=== PATIENT | male | born 1955 | race Caucasian/White ===

== ENCOUNTER 2017-10-21 13:16 | Emergency (ER) | payer MEDICAID ==
[~2017-10-21] VITALS: Ht 180.3 cm; Wt 135.3 kg
[~2017-10-21 13:16] MED LIST: ASPI-496 PO; ATOR40TA78 PO; CITA20TA5 PO; FISH OIL PO; LISI-170 PO; METF10002 PO; MULT-6 PO
[2017-10-21 13:18] VITALS: BP 142/77
[2017-10-21] MEDS ORDERED: HYDROcodone/APAP 5/325 TABLET ONE (13:43)
[2017-10-21] MEDS ORDERED: HYDROcodone/APAP 5/325 TABLET PO ONE (14:00)
[2017-10-21] MEDS ORDERED: GLIM2TAB2 PO (14:05)
[2017-10-21] MEDS ORDERED: HYDR12.53 PO (14:08)
[2017-10-21] MEDS ORDERED: TAMS-11 PO (14:08)
[2017-10-21] MEDS ORDERED: AMIT25TA PO (14:08)
== END 2017-10-21 14:52 | disposition home or self-care (01) ==
LOC: ED 14:00
DX: M16.12 Unilateral primary osteoarthritis, left hip (principal); E11.9 Type 2 diabetes mellitus without complications; I10 Essential (primary) hypertension; Z87.891 Personal history of nicotine dependence
CPT/HCPCS: 99284

== ENCOUNTER 2018-11-28 13:48 | Inpatient (IN) | payer MEDICAID, MEDICARE ==
[~2018-11-28] VITALS: Ht 177.8 cm; Wt 115.7 kg
[~2018-11-28 13:48] MED LIST changes: +AMIT25TA PO; -CITA20TA5 PO; +CITA20TA6 PO; +GLIM2TAB2 PO; +HYDR12.517 PO; +TAMS-11 PO; +TRAM50TA2 PO
--- NOTE | 2018-11-28 14:08 | NUR ---
THIS IS A 62Y/O MALE THAT ARRIVES FROM HOME FOR LOWER RIGHT GROIN PAIN WITH LOWER RIGHT ABD PAIN. PT REPORTS PAIN FOR ONE MONTH BUT IT IS WORSE TODAY. PT DENIES ANY TRUAMA BUT HAS SIGNIFICANT REDNESS TO AREA NO SWELLING AND SCROTUM APPEARS TO HAVE SWELLING PRESENT AT THIS TIME. PT REPORTS THAT HE HAS BEEN USING LOTION ON AREA TO HELP ALLEVIATE THE PAIN. PT DENIES ANY INJECTION PENILE DISCHARGE OR PAINFUL URINATION. PT CONNECTED TO MONITORS AND CALL LIGHT IN REACH. AWAITING FURTHER ORDERS.
--- NOTE | 2018-11-28 15:01 | NUR ---
PT RESTING ON [facility]. PROVIDED WITH URINAL AND UA CUP.
[2018-11-28] MEDS ORDERED: NYSTATIN/TRIAMCINOLONE OINT 15GM TP ONE (15:25)
[2018-11-28] MEDS ORDERED: ONDANSETRON 2MG/ML, 2ML IVPush ONE (15:30)
[2018-11-28] MEDS ORDERED: HYDROmorphone 2 MG/ML, 1ML IVPush PRN (15:30)
[2018-11-28] MEDS ORDERED: SODIUM CHLORIDE FLUSH 10ML SYR IVF ONE (15:30)
[2018-11-28 15:52] LABS: BASOPHILS # (AUTO) 0.04 x10^3/uL (0-0.1); BASOPHILS % (AUTO) 0 % (0-1); EOSINOPHILS # (AUTO) 0.11 x10^3/uL (0-0.4); EOSINOPHILS % (AUTO) 1 % (1-7); LYMPHOCYTES # (AUTO) 2.42 x10^3/uL (1-3.4); LYMPHOCYTES % (AUTO) 28 % (22-44); MD NO; MEAN CORPUSCULAR HEMOGLOBIN 31.9 pg (27.5-34.5); MEAN CORPUSCULAR HGB CONC 34.5 g/dL (33.2-36.2); MEAN CORPUSCULAR VOLUME 92.2 fL (81-97); MEAN PLATELET VOLUME 9.4 fL (7.4-10.4); MONOCYTES # (AUTO) 0.61 x10^3/uL (0.2-0.8); MONOCYTES % (AUTO) 7 % (2-9); NEUTROPHILS % (AUTO) 63 % (42-75); PLATELET COUNT 186 x10^3/uL (130-400); RED BLOOD COUNT 5.21 x10^6/uL (4.38-5.82); RED CELL DISTRIBUTION WIDTH 13.4 % (9.4-14.8)
[2018-11-28] MEDS ORDERED: ONDANSETRON 2MG/ML, 2ML ONE (15:58)
[2018-11-28] MEDS ORDERED: HYDROmorphone 2 MG/ML, 1ML ONE (15:58)
[2018-11-28 16:05] LABS: ALANINE AMINOTRANSFERASE 35 U/L (12-78); ALBUMIN 3.4 g/dL (3.4-5.0); ANION GAP 5 mmol/L (5-15); CALCIUM 8.9 mg/dL (8.5-10.1); CHLORIDE 107 mmol/L (98-107); CREATININE 0.72 mg/dL (0.7-1.3)
[2018-11-28 16:07] LABS: ALKALINE PHOSPHATASE 90 U/L (45-117); BILIRUBIN,TOTAL 0.5 mg/dL (0.2-1.0); TOTAL PROTEIN 6.3 g/dL (6.4-8.2)
[2018-11-28] MEDS ORDERED: OMNIPAQUE 350 MG/ML, 100ML BOTTLE ONE (16:39)
--- NOTE | 2018-11-28 16:39 | NUR ---
PT STATES HE IS STILL UNABLE TO URINATE AT THIS TIME.
--- NOTE | 2018-11-28 18:04 | NUR ---
PT PROVIDED URINE SAMPLE. SENT TO LAB.
[2018-11-28] MEDS ORDERED: ACETAMINOPHEN 500 MG TABLET ONE (18:14)
[2018-11-28 18:20] LABS: MICROSCOPIC NOT IND
[2018-11-28 18:23] LABS: CULTURE INDICATED? NO
[2018-11-28] MEDS ORDERED: PROMETHAZINE 25 MG/ML, 1ML IM PRN (19:00)
[2018-11-28] MEDS ORDERED: morphine SULFATE 10 MG/ML, 1ML IVPush PRN (19:00)
[2018-11-28] MEDS ORDERED: LABETALOL 5MG/ML, 20ML IVPush PRN (19:00)
[2018-11-28] MEDS ORDERED: DOCUSATE 100 MG CAPSULE PO PRN (19:00)
[2018-11-28] MEDS ORDERED: ACETAMINOPHEN 325 MG TABLET PO PRN (19:00)
[2018-11-28] MEDS ORDERED: ONDANSETRON ODT 4 MG PO PRN (19:00)
[2018-11-28] MEDS ORDERED: POLYETHYLENE GLYCOL 17 GM PACKET PO PRN (19:00)
[2018-11-28] MEDS ORDERED: hydrALAzine 20 MG/ML, 1ML IVPush PRN (19:00)
[2018-11-28] MEDS ORDERED: BISACODYL 10 MG SUPP PR PRN (19:00)
[2018-11-28] MEDS ORDERED: HYDROcodone/APAP 5/325 TABLET PO PRN (19:00)
[2018-11-28] MEDS ORDERED: ONDANSETRON 2MG/ML, 2ML IVPush PRN (19:00)
--- NOTE | 2018-11-28 19:08 | NUR ---
Report to LYNNE Man.
--- NOTE | 2018-11-28 19:19 | NUR ---
HOME MED REC WAS DONE VSS UPDATED STABLE PT IS RESING NO C/O
[2018-11-28 19:34] LABS: FREE T4 (FREE THYROXINE) 1.14 ng/dL (0.76-1.46); THYROID STIMULATING HORMONE 0.695 mIU/L (0.358-3.740)
[2018-11-28] MEDS ORDERED: HEPARIN 5,000 UNITS/ML, 1ML ONE (19:49)
[2018-11-28] MEDS: SODIUM CHLORIDE 0.9% 1,000 ML IV SCH (20:06)
[2018-11-28] MEDS: HEPARIN 5,000 UNITS/ML, 1ML SQ SCH (20:06)
[2018-11-28] MEDS: AMPICILLIN/SULBACTAM 3 GM in SODIUM CHLORIDE 0.9% 100 ML IV SCH (20:06)
--- NOTE | 2018-11-28 20:18 | NUR ---
GIVEN REPORT IV ABX WAS HUNG PT IS RESTING NO C/O PT WILL BE TRNASFERRED NOW
[2018-11-28 21:11] VITALS: BP 120/81
[2018-11-28] MEDS: FLUCONAZOLE 200 MG/100 ML 100 ML IV SCH (22:49)
[2018-11-28] MEDS: INSULIN LISPRO 100 UNITS/ML, PEN SQ-INSULIN SCH (22:50)
[2018-11-28] MEDS: metFORMIN 500 MG TABLET PO SCH (22:51)
[2018-11-28] MEDS: AMITRIPTYLINE 10 MG TABLET PO SCH (22:51)
[2018-11-28] MEDS: ATORVASTATIN 40 MG TABLET PO SCH (22:51)
[2018-11-29 01:53] VITALS: BP 127/80
[2018-11-29] MEDS: AMPICILLIN/SULBACTAM 3 GM in SODIUM CHLORIDE 0.9% 100 ML IV SCH ×4 (02:01→20:37)
[2018-11-29] MEDS: HEPARIN 5,000 UNITS/ML, 1ML SQ SCH ×3 (04:20→20:38)
[2018-11-29 05:00] LABS: BASOPHILS # (AUTO) 0.04 x10^3/uL (0-0.1); BASOPHILS % (AUTO) 1 % (0-1); EOSINOPHILS # (AUTO) 0.15 x10^3/uL (0-0.4); EOSINOPHILS % (AUTO) 2 % (1-7); LYMPHOCYTES # (AUTO) 2.18 x10^3/uL (1-3.4); LYMPHOCYTES % (AUTO) 31 % (22-44); MD NO; MEAN CORPUSCULAR HEMOGLOBIN 31.9 pg (27.5-34.5); MEAN CORPUSCULAR VOLUME 93.9 fL (81-97); MEAN PLATELET VOLUME 9.5 fL (7.4-10.4); MONOCYTES # (AUTO) 0.65 x10^3/uL (0.2-0.8); MONOCYTES % (AUTO) 9 % (2-9); NEUTROPHILS # (AUTO) 4.13 x10^3/uL (1.8-6.8); NEUTROPHILS % (AUTO) 58 % (42-75); PLATELET COUNT 179 x10^3/uL (130-400); RED BLOOD COUNT 5.02 x10^6/uL (4.38-5.82); RED CELL DISTRIBUTION WIDTH 13.8 % (9.4-14.8)
[2018-11-29 05:15] LABS: CHLORIDE 108 mmol/L (98-107)
[2018-11-29 05:22] LABS: ALANINE AMINOTRANSFERASE 26 U/L (12-78); ALBUMIN 2.9 g/dL (3.4-5.0); ALKALINE PHOSPHATASE 82 U/L (45-117); ANION GAP 6 mmol/L (5-15); BILIRUBIN,TOTAL 0.6 mg/dL (0.2-1.0); CALCIUM 8.5 mg/dL (8.5-10.1); CHOL/HDL RATIO 4.9; CHOLESTEROL, TOTAL 186 mg/dL (140-239); CREATININE 0.78 mg/dL (0.7-1.3); HDL CHOL % 20 % (26-37); HDL CHOLESTEROL (DIRECT) 38 mg/dL (40-60); LDL CHOLESTEROL,CALCULATED 107 mg/dL (54-169); LDL/HDL RATIO 2.8 (0.5-3.0); TOTAL PROTEIN 5.8 g/dL (6.4-8.2); TRIGLYCERIDES 203 mg/dL (50-200); VLDL CHOLESTEROL 41 mg/dL (0-25)
[2018-11-29] MEDS: SODIUM CHLORIDE 0.9% 1,000 ML IV SCH (06:13)
[2018-11-29 07:38] VITALS: BP 137/95
[2018-11-29] MEDS: LISINOPRIL 20 MG TABLET PO SCH (08:14)
[2018-11-29] MEDS: TAMSULOSIN 0.4 MG CAP.ER.24H PO SCH (08:15)
[2018-11-29] MEDS: metFORMIN 500 MG TABLET PO SCH ×2 (08:15→20:38)
[2018-11-29] MEDS: HYDROCHLOROTHIAZIDE 12.5 MG CAPSULE PO SCH (08:15)
[2018-11-29] MEDS: INSULIN LISPRO 100 UNITS/ML, PEN SQ-INSULIN SCH ×4 (08:16→20:42)
[2018-11-29] MEDS: GLIMEPIRIDE 4 MG TABLET PO SCH (10:57)
[2018-11-29 12:17] VITALS: BP 137/95
[2018-11-29 19:41] VITALS: BP 115/75
[2018-11-29] MEDS: AMITRIPTYLINE 10 MG TABLET PO SCH (20:38)
[2018-11-29] MEDS: ATORVASTATIN 40 MG TABLET PO SCH (20:38)
[2018-11-29] MEDS: FLUCONAZOLE 200 MG/100 ML 100 ML IV SCH (22:52)
[2018-11-30 00:17] VITALS: BP 117/78
[2018-11-30] MEDS: AMPICILLIN/SULBACTAM 3 GM in SODIUM CHLORIDE 0.9% 100 ML IV SCH ×2 (02:40→08:27)
[2018-11-30] MEDS: HEPARIN 5,000 UNITS/ML, 1ML SQ SCH (04:25)
[2018-11-30] MEDS: INSULIN LISPRO 100 UNITS/ML, PEN SQ-INSULIN SCH (07:02)
[2018-11-30 08:18] VITALS: BP 126/87
[2018-11-30] MEDS: LISINOPRIL 20 MG TABLET PO SCH (08:26)
[2018-11-30] MEDS: HYDROCHLOROTHIAZIDE 12.5 MG CAPSULE PO SCH (08:27)
[2018-11-30] MEDS: metFORMIN 500 MG TABLET PO SCH (08:27)
[2018-11-30] MEDS: GLIMEPIRIDE 4 MG TABLET PO SCH (08:27)
[2018-11-30] MEDS: TAMSULOSIN 0.4 MG CAP.ER.24H PO SCH (08:27)
[2018-11-30] MEDS ORDERED: IBUP-1222 PO (10:31)
[2018-11-30] MEDS ORDERED: SULF1TAB24 PO (10:31)
[2018-11-30] MEDS ORDERED: FLUC200T PO (10:31)
[2018-11-30] MEDS ORDERED: NYST60PO TP (10:31)
== END 2018-11-30 11:40 | disposition home or self-care (01) | DRG 872 ==
LOC: ED 17:16 → EDIP 18:03 → 4NOR 20:53 → DCLOUNGE 11-30 11:30
PROVIDERS: ADMIT Internal Medicine; ATTEND Internal Medicine
DX: A41.9 Sepsis, unspecified organism (principal); B37.9 Candidiasis, unspecified; N49.2 Inflammatory disorders of scrotum; E11.65 Type 2 diabetes mellitus with hyperglycemia; E78.5 Hyperlipidemia, unspecified; I10 Essential (primary) hypertension; I86.1 Scrotal varices; M06.9 Rheumatoid arthritis, unspecified; M16.0 Bilateral primary osteoarthritis of hip; N40.0 Benign prostatic hyperplasia without lower urinary tract symptoms; N43.3 Hydrocele, unspecified; Z87.891 Personal history of nicotine dependence; Z90.49 Acquired absence of other specified parts of digestive tract
CPT/HCPCS: 36415; 74177; 76870; 80053; 80061; 81003; 82962; 83036; 83605; 83735; 84439; 84443; 85025; 87040; 93975; 96374; 96375; 99285; G0378; J0295; J1170; J1644; J2405; Q9967; J1450; J1815; J7030

== ENCOUNTER 2018-12-15 12:27 | Emergency (ER) | payer MEDICARE ==
[~2018-12-15] VITALS: Ht 177.8 cm; Wt 114.0 kg
[~2018-12-15 12:27] MED LIST changes: +FLUC200T PO; +IBUP-1222 PO; +NYST60PO TP; +SULF1TAB24 PO
--- NOTE | 2018-12-15 12:45 | NUR ---
BIB BY [facility] FROM [facility] PATIENT DIAPHORETIC/IN IMMENSE PAIN AT CLINIC FOR F/U FOR CONTINUED RIGHT GROIN PAIN REPORTS HE WAS HOSPITALIZED LAST WEEK FOR UNKNOW SCROTAL INFECTION SINCE BEING DISCHARGED HAS NOT TAKEN ANY OF HIS MEDICINES HIS INSURANCE LAPSED IMMEDIATE EKG OBTAINED HR 100, 174/115 FSBS 421 BY COMPENSATION ANALYST USING HOSPITAL GLUCOMETER URINE SAMPLE OBTAINED AND SENT
[2018-12-15] MEDS ORDERED: KETOCONAZOLE CRM 2%, 15GM TP SCH (13:00)
[2018-12-15] MEDS ORDERED: INSULIN LISPRO 100 UNITS/ML, PEN SQ-INSULIN ONE (13:00)
--- NOTE | 2018-12-15 13:00 | NUR ---
PT TO US VIA DAVID.
[2018-12-15 13:21] LABS: BASOPHILS # (AUTO) 0.04 x10^3/uL (0-0.1); BASOPHILS % (AUTO) 0 % (0-1); EOSINOPHILS # (AUTO) 0.11 x10^3/uL (0-0.4); EOSINOPHILS % (AUTO) 1 % (1-7); LYMPHOCYTES # (AUTO) 1.83 x10^3/uL (1-3.4); LYMPHOCYTES % (AUTO) 19 % (22-44); MD NO; MEAN CORPUSCULAR HEMOGLOBIN 31.6 pg (27.5-34.5); MEAN CORPUSCULAR HGB CONC 33.2 g/dL (33.2-36.2); MEAN CORPUSCULAR VOLUME 95.2 fL (81-97); MEAN PLATELET VOLUME 10.1 fL (7.4-10.4); MONOCYTES # (AUTO) 0.63 x10^3/uL (0.2-0.8); MONOCYTES % (AUTO) 7 % (2-9); NEUTROPHILS # (AUTO) 7.08 x10^3/uL (1.8-6.8); NEUTROPHILS % (AUTO) 73 % (42-75); PLATELET COUNT 241 x10^3/uL (130-400); RED BLOOD COUNT 5.63 x10^6/uL (4.38-5.82); RED CELL DISTRIBUTION WIDTH 13.9 % (9.4-14.8)
[2018-12-15 13:27] LABS: ANION GAP 8 mmol/L (5-15); CALCIUM 9.2 mg/dL (8.5-10.1); CHLORIDE 100 mmol/L (98-107); CREATININE 1.17 mg/dL (0.7-1.3)
--- NOTE | 2018-12-15 13:49 | NUR ---
PT SENT IN FROM [facility] DUE DIAPHROSIS AND EKG CHANGES. PT RECENTLY ADMITTED FOR TESTICLE INFECTION. STATES UNABLE TO TAKEM PRESCRIBED MEDICATIONS AFTER BEING D/C 2 WEEKS AGO. PT STATES TESTICAL PAIN THAT FEELS LIKE HERNIA. PT DIPHORETIC, FLUSHED, AND WARM. MILD AMOUNT OF DISTRESS AND DISCOMFORT NOTED. PT CONCERNED WITH GETTING D/C. PT ON SHAPE BRICK MOLDER, CONT. PULSE OX, AND BP. POC DISCUSSED. WILL CONTINUE TO MONITOR.
[2018-12-15] MEDS ORDERED: INSULIN LISPRO 100 UNITS/ML, PEN ONE (13:57)
[2018-12-15 13:59] LABS: MICROSCOPIC AUTO
[2018-12-15 14:00] LABS: CULTURE INDICATED? NO
[2018-12-15] MEDS ORDERED: INSULIN REGULAR 100 UNITS/ML, 3ML VIAL SQ-INSULIN ONE (14:00)
--- NOTE | 2018-12-15 14:00 | NUR ---
PT STATES HE HAS NO FUNGAL INFECTION AT THIS TIME. CREAM HELD.
--- NOTE | 2018-12-15 14:09 | NUR ---
INSULIN NOT IN OMNICELL. PHARMACY AWARE.
[2018-12-15 14:30] VITALS: BP 143/87
[2018-12-15] MEDS ORDERED: CEFTRIAXONE 1,000 MG IM ONE (14:30)
[2018-12-15] MEDS ORDERED: CEFTRIAXONE 250 MG ONE (14:31)
--- NOTE | 2018-12-15 14:35 | NUR ---
PT MEDICATE PER SEP. 5 RIGHTS VERIFIED PRIOR. PT STATING HE WANTS TO LEAVE AND IS REFUSING INSULIN. EDUCATED PT ON IMPORTANCE OF INSULIN. CONTINUES TO REFUSE AND AGAIN STATES HE WANTS TO LEAVE.
--- NOTE | 2018-12-15 14:53 | NUR ---
PT GIVEN D/C PAPERWORK. PT VERBALIZED UNDERSTANDING. INSULIN NOT HERE AT THIS TIME. PT AGAIN DOES NOT WANT TO WAIT FOR INSULIN TO COME FROM PHARMACY.
== END 2018-12-15 14:55 | disposition home or self-care (01) ==
LOC: ED 13:52
DX: N45.1 Epididymitis (principal); L03.115 Cellulitis of right lower limb; N43.3 Hydrocele, unspecified; I86.1 Scrotal varices; E11.65 Type 2 diabetes mellitus with hyperglycemia; B35.6 Tinea cruris; I10 Essential (primary) hypertension; Z87.891 Personal history of nicotine dependence; Z90.89 Acquired absence of other organs
CPT/HCPCS: 76870; 80048; 81001; 82962; 85025; 93005; 96372; 99284; J0696; J1815

== ENCOUNTER 2019-05-20 18:17 | Emergency (ER) | payer MEDICARE ==
[~2019-05-20] VITALS: Ht 177.8 cm; Wt 113.8 kg
[~2019-05-20 18:17] MED LIST changes: -GLIM2TAB2 PO; +GLIM2TAB3 PO
--- NOTE | 2019-05-20 19:01 | NUR ---
pt to rr with steady gait to provide ua sample.
--- NOTE | 2019-05-20 19:21 | NUR ---
PT TO ED FOR RIGHT TESTICLE AND GROIN PAIN WITH BULGES SINCE YESTERDAY. PT REPORTS INCREASED PAIN TODAY. PT STATES NO URINARY S/S AND DENIES N/V/D/F. PT CONNECTED TO MONITORS. VSS. NO NEEDS EXPRESSED. CALL LIGHT WITHIN REACH. AWAITING EDMD ASSESSMENT.
[2019-05-20 19:32] LABS: MICROSCOPIC AUTO
[2019-05-20 19:37] LABS: CULTURE INDICATED? NO
--- NOTE | 2019-05-20 19:52 | NUR ---
PT RESTING IN ROOM. VSS. PT REQUESTING PAIN MEDICATIONS. WILL NOTIFY EDMD. NO OTHER NEEDS EXPRESSED. [facility]
[2019-05-20] MEDS ORDERED: OXYcodone/APAP 10/325MG TABLET PO ONE (20:00)
[2019-05-20] MEDS ORDERED: OXYcodone/APAP 10/325MG TABLET ONE (20:02)
--- NOTE | 2019-05-20 20:09 | NUR ---
DR. SONI TO BS FOR ASSESSMENT. ORDERS RECEIVED. VSS. PT MEDICATED PER MAR. NO OTHER NEEDS AT THIS TIME. AWAITING. US.
--- NOTE | 2019-05-20 20:41 | NUR ---
ALL RESUTLS BACK AT THIS TIME. CHART UP FOR RECHECK.
--- NOTE | 2019-05-20 20:43 | NUR ---
PT RESTING IN ROOM. VSS. NO NEEDS EXPRESSED. CALL LIGHT WITHIN REACH. CHART UP FOR RECHECK.
[2019-05-20] MEDS ORDERED: SODIUM CHLORIDE FLUSH 10ML SYR IVF ONE (21:00)
[2019-05-20] MEDS ORDERED: MORPHINE SULFATE 4 MG/ML, 1ML IVPush PRN (21:00)
--- NOTE | 2019-05-20 21:11 | NUR ---
pt resting in room. vss. piv established and labs drawn. no needs expressed at this time. call light within reach. awaiting ct.
[2019-05-20 21:20] LABS: BASOPHILS # (AUTO) 0.04 x10^3/uL (0-0.1); BASOPHILS % (AUTO) 1 % (0-1); EOSINOPHILS # (AUTO) 0.11 x10^3/uL (0-0.4); EOSINOPHILS % (AUTO) 1 % (1-7); LYMPHOCYTES # (AUTO) 2.14 x10^3/uL (1-3.4); LYMPHOCYTES % (AUTO) 26 % (22-44); MD NO; MEAN CORPUSCULAR HEMOGLOBIN 31.7 pg (27.5-34.5); MEAN CORPUSCULAR HGB CONC 32.9 g/dL (33.2-36.2); MEAN CORPUSCULAR VOLUME 96.5 fL (81-97); MEAN PLATELET VOLUME 10.6 fL (7.4-10.4); MONOCYTES # (AUTO) 0.81 x10^3/uL (0.2-0.8); MONOCYTES % (AUTO) 10 % (2-9); NEUTROPHILS # (AUTO) 4.98 x10^3/uL (1.8-6.8); NEUTROPHILS % (AUTO) 62 % (42-75); PLATELET COUNT 162 x10^3/uL (130-400); RED CELL DISTRIBUTION WIDTH 14.8 % (9.4-14.8)
[2019-05-20 21:30] LABS: ALANINE AMINOTRANSFERASE 68 U/L (12-78); ALBUMIN 3.2 g/dL (3.4-5.0); ANION GAP 6 mmol/L (5-15); CALCIUM 8.5 mg/dL (8.5-10.1); CHLORIDE 105 mmol/L (98-107); CREATININE 1.03 mg/dL (0.7-1.3)
[2019-05-20 21:33] LABS: ALKALINE PHOSPHATASE 110 U/L (45-117); BILIRUBIN,TOTAL 0.7 mg/dL (0.2-1.0); TOTAL PROTEIN 6.2 g/dL (6.4-8.2)
--- NOTE | 2019-05-20 22:03 | NUR ---
pt resting in room. vss. pt reports decrease in pain after percocet, declining morphine at this time. no needs expressed. call light within reach. all results back at this time. chart up for recheck. report to LYNNE Kimball.
--- NOTE | 2019-05-20 22:07 | NUR ---
assumed care of pt at this time
[2019-05-20] MEDS ORDERED: KETOROLAC 30 MG/1 ML IVPush ONE (23:00)
[2019-05-20] MEDS ORDERED: KETOROLAC 30 MG/1 ML ONE ×2 (23:03→23:06)
[2019-05-20 23:07] VITALS: BP 121/78
[2019-05-20] MEDS ORDERED: KETOROLAC 60 MG/2 ML IM ONE (23:30)
[2019-05-20] MEDS ORDERED: OMNIPAQUE 350 MG/ML, 100ML BOTTLE ONE ×2 (23:31→23:33)
== END 2019-05-20 23:17 | disposition home or self-care (01) ==
LOC: ED 22:37
DX: N45.1 Epididymitis (principal); E11.65 Type 2 diabetes mellitus with hyperglycemia; Z91.14 Patient's other noncompliance with medication regimen; N50.811 Right testicular pain; E78.5 Hyperlipidemia, unspecified; I10 Essential (primary) hypertension; E11.9 Type 2 diabetes mellitus without complications; M19.90 Unspecified osteoarthritis, unspecified site; Z90.49 Acquired absence of other specified parts of digestive tract; Z87.891 Personal history of nicotine dependence
CPT/HCPCS: 36415; 74177; 76870; 80053; 81001; 85025; 87491; 87591; 96372; 99284; J1885; Q9967

== ENCOUNTER 2019-06-30 16:19 | Inpatient (IN) | payer MEDICARE ==
[~2019-06-30] VITALS: Ht 177.8 cm; Wt 125.8 kg
--- NOTE | 2019-06-30 16:58 | NUR ---
Note alistair in EDM - 06/30/19 at 1701 by MRICH Specimen caught and given to evs it service continuity supervisor. Pt had ticks on him arrival. director of cath lab informed.
--- NOTE | 2019-06-30 17:01 | NUR ---
Specimen caught and given to evs chemical supervisor. Pt had ticks on him arrival. level designer informed.
[2019-06-30] MEDS ORDERED: SODIUM CHLORIDE FLUSH 10ML SYR IVF ONE (17:30)
[2019-06-30 17:53] LABS: BASOPHILS # (AUTO) 0.04 x10^3/uL (0-0.1); BASOPHILS % (AUTO) 0 % (0-1); EOSINOPHILS # (AUTO) 0.11 x10^3/uL (0-0.4); EOSINOPHILS % (AUTO) 1 % (1-7); LYMPHOCYTES # (AUTO) 1.66 x10^3/uL (1-3.4); LYMPHOCYTES % (AUTO) 17 % (22-44); MD NO; MEAN CORPUSCULAR HEMOGLOBIN 32.2 pg (27.5-34.5); MEAN CORPUSCULAR HGB CONC 32.6 g/dL (33.2-36.2); MEAN CORPUSCULAR VOLUME 98.8 fL (81-97); MEAN PLATELET VOLUME 11.7 fL (7.4-10.4); MONOCYTES # (AUTO) 0.82 x10^3/uL (0.2-0.8); MONOCYTES % (AUTO) 8 % (2-9); NEUTROPHILS % (AUTO) 74 % (42-75); PLATELET COUNT 169 x10^3/uL (130-400); RED BLOOD COUNT 4.93 x10^6/uL (4.38-5.82); RED CELL DISTRIBUTION WIDTH 15.3 % (9.4-14.8)
--- NOTE | 2019-06-30 17:54 | NUR ---
Pt alert and resting on gurney. Pt reports noticing abd and genital swelling Tuesday. Pt reports he has a hx of diabetes and HTN and that he has not consistantly taking his meds for 6 months. Pt with large, rounded, distended abd and swollen genitals. Pitting 2+ edema to bilateral feet and lower legs. Pt on all monitors. Pt in gown. Call light in place.
[2019-06-30 17:55] LABS: INTERNATIONAL NORMALIZED RATIO 1.32 (0.93-1.1); PROTHROMBIN TIME 13.7 Seconds (9.6-11.5)
[2019-06-30 17:56] LABS: ALANINE AMINOTRANSFERASE 66 U/L (12-78); ALBUMIN 3.1 g/dL (3.4-5.0); ANION GAP 10 mmol/L (5-15); CALCIUM 8.6 mg/dL (8.5-10.1); CHLORIDE 104 mmol/L (98-107); CREATININE 1.17 mg/dL (0.7-1.3)
[2019-06-30 18:01] LABS: ALKALINE PHOSPHATASE 150 U/L (45-117); BILIRUBIN,TOTAL 1.6 mg/dL (0.2-1.0); TOTAL PROTEIN 6.2 g/dL (6.4-8.2); TROPONIN I 0.092 ng/mL (0.000-0.045)
[2019-06-30] MEDS ORDERED: FUROSEMIDE 40 MG/4 ML IV ONE (18:30)
[2019-06-30] MEDS ORDERED: FUROSEMIDE 40 MG/4 ML ONE (18:40)
--- NOTE | 2019-06-30 18:56 | NUR ---
Pt alert and resting on gurney. Pt denies needs at this time.
--- NOTE | 2019-06-30 19:05 | NUR ---
Report given to LYNNE Rahman
[2019-06-30] MEDS ORDERED: ENALAPRILAT 1.25 MG/ML, 2ML IVPush PRN (20:30)
[2019-06-30] MEDS ORDERED: ENOXAPARIN 40 MG/0.4 ML SQ SCH (20:30)
[2019-06-30] MEDS ORDERED: LIDODERM 5% PATCH TD PRN (20:30)
[2019-06-30] MEDS ORDERED: ACETAMINOPHEN 325 MG TABLET PO PRN (20:30)
[2019-06-30] MEDS ORDERED: ONDANSETRON ODT 4 MG PO PRN (20:30)
[2019-06-30] MEDS ORDERED: DOCUSATE 100 MG CAPSULE PO PRN (20:30)
[2019-06-30 22:59] VITALS: BP 123/94
[2019-06-30] MEDS ORDERED: FLU VACC QS2019-20 36MOS UP/PF 0.5 ML IM-VACC ONE (23:45)
[2019-06-30 23:59] LABS: TROPONIN I 0.102 ng/mL (0.000-0.045)
[2019-07-01 00:27] VITALS: BP 136/96
[2019-07-01] MEDS ORDERED: ALBUTEROL/IPRATROPIUM 2.5MG/0.5MG, 3 ML NPPB PRN (04:30)
[2019-07-01 07:04] LABS: BASOPHILS # (AUTO) 0.04 x10^3/uL (0-0.1); BASOPHILS % (AUTO) 1 % (0-1); EOSINOPHILS # (AUTO) 0.18 x10^3/uL (0-0.4); EOSINOPHILS % (AUTO) 2 % (1-7); LYMPHOCYTES # (AUTO) 1.62 x10^3/uL (1-3.4); LYMPHOCYTES % (AUTO) 20 % (22-44); MD NO; MEAN CORPUSCULAR HEMOGLOBIN 32.2 pg (27.5-34.5); MEAN CORPUSCULAR HGB CONC 32.6 g/dL (33.2-36.2); MEAN PLATELET VOLUME 10.8 fL (7.4-10.4); MONOCYTES # (AUTO) 0.92 x10^3/uL (0.2-0.8); MONOCYTES % (AUTO) 11 % (2-9); NEUTROPHILS # (AUTO) 5.38 x10^3/uL (1.8-6.8); NEUTROPHILS % (AUTO) 66 % (42-75); PLATELET COUNT 134 x10^3/uL (130-400); RED BLOOD COUNT 4.93 x10^6/uL (4.38-5.82); RED CELL DISTRIBUTION WIDTH 15.5 % (9.4-14.8)
[2019-07-01 07:15] LABS: ANION GAP 8 mmol/L (5-15); CALCIUM 8.7 mg/dL (8.5-10.1); CHLORIDE 103 mmol/L (98-107)
[2019-07-01 07:20] LABS: CREATININE 1.09 mg/dL (0.7-1.3); TROPONIN I 0.098 ng/mL (0.000-0.045)
[2019-07-01 07:49] VITALS: BP 122/83
[2019-07-01] MEDS ORDERED: FUROSEMIDE 40 MG/4 ML ONE (09:45)
[2019-07-01] MEDS: GUAIFENESIN 200 MG TABLET PO SCH ×3 (09:49→20:34)
[2019-07-01] MEDS ORDERED: FUROSEMIDE 40 MG/4 ML IV ONE (10:00)
[2019-07-01 14:10] VITALS: BP 127/95
[2019-07-01] MEDS ORDERED: GLUCAGON 1 MG IM PRN (14:30)
[2019-07-01] MEDS ORDERED: DEXTROSE 4 GM TAB.CHEW PO PRN (14:30)
[2019-07-01] MEDS ORDERED: DEXTROSE 50%, 50ML SYRINGE IVPush PRN (14:30)
[2019-07-01 14:43] LABS: CHOL/HDL RATIO 3.2; LDL/HDL RATIO 1.8 (0.5-3.0)
[2019-07-01] MEDS: FUROSEMIDE 40 MG/4 ML IV SCH (16:04)
[2019-07-01] MEDS: INSULIN LISPRO 100 UNITS/ML, PEN SQ-INSULIN SCH ×2 (17:57→20:45)
[2019-07-01] MEDS: CARVEDILOL 3.125 MG TABLET PO SCH (19:00)
[2019-07-01] MEDS: ENOXAPARIN 100 MG/ML SQ SCH (20:34)
[2019-07-01] MEDS: ENOXAPARIN 40 MG/0.4 ML SQ SCH (20:34)
[2019-07-01] MEDS: ATORVASTATIN 40 MG TABLET PO SCH (20:34)
[2019-07-01] MEDS: INSULIN GLARGINE 100 UNITS/ML, PEN SQ-INSULIN SCH (20:45)
[2019-07-01 20:58] VITALS: BP 129/99
[2019-07-01] MEDS: SODIUM CHLORIDE FLUSH 10ML SYR IVF SCH (21:00)
[2019-07-02 03:21] VITALS: BP 145/94
[2019-07-02 05:46] LABS: CHLORIDE 102 mmol/L (98-107)
[2019-07-02 05:54] LABS: ALANINE AMINOTRANSFERASE 57 U/L (12-78); ALBUMIN 2.8 g/dL (3.4-5.0); ALKALINE PHOSPHATASE 152 U/L (45-117); ANION GAP 8 mmol/L (5-15); BILIRUBIN,TOTAL 1.2 mg/dL (0.2-1.0); CALCIUM 8.8 mg/dL (8.5-10.1); TOTAL PROTEIN 5.8 g/dL (6.4-8.2)
[2019-07-02] MEDS: GUAIFENESIN 200 MG TABLET PO SCH ×4 (06:10→21:47)
[2019-07-02] MEDS: CARVEDILOL 3.125 MG TABLET PO SCH ×2 (06:10→18:35)
[2019-07-02 06:53] VITALS: BP 129/95
[2019-07-02] MEDS: INSULIN LISPRO 100 UNITS/ML, PEN SQ-INSULIN SCH ×4 (07:00→21:48)
[2019-07-02] MEDS: ENOXAPARIN 40 MG/0.4 ML SQ SCH ×2 (08:43→21:48)
[2019-07-02] MEDS: ASPIRIN 81 MG TABLET CHEW PO SCH (08:44)
[2019-07-02] MEDS: FUROSEMIDE 40 MG/4 ML IV SCH ×2 (08:44→17:10)
[2019-07-02] MEDS: SODIUM CHLORIDE FLUSH 10ML SYR IVF SCH ×2 (08:44→21:00)
[2019-07-02] MEDS: ENOXAPARIN 100 MG/ML SQ SCH ×2 (08:44→21:48)
[2019-07-02] MEDS: INSULIN GLARGINE 100 UNITS/ML, PEN SQ-INSULIN SCH ×3 (08:48→21:49)
[2019-07-02] MEDS ORDERED: LISINOPRIL 5 MG TABLET PO SCH (09:00)
[2019-07-02 11:30] VITALS: BP 118/78
[2019-07-02] MEDS: SPIRONOLACTONE 25 MG TABLET PO SCH (11:37)
[2019-07-02 15:05] VITALS: BP 114/74
[2019-07-02 18:33] VITALS: BP 115/70
[2019-07-02 20:08] VITALS: BP 111/72
[2019-07-02] MEDS ORDERED: ENOXAPARIN 40 MG/0.4 ML SQ SCH (21:00)
[2019-07-02] MEDS ORDERED: ENOXAPARIN 100 MG/ML SQ SCH (21:00)
[2019-07-02] MEDS: ATORVASTATIN 40 MG TABLET PO SCH (21:47)
[2019-07-03 02:36] VITALS: BP 134/90
[2019-07-03 04:49] LABS: INTERNATIONAL NORMALIZED RATIO 1.33 (0.93-1.1); PROTHROMBIN TIME 13.8 Seconds (9.6-11.5)
[2019-07-03 04:53] LABS: ALANINE AMINOTRANSFERASE 50 U/L (12-78); ALBUMIN 2.5 g/dL (3.4-5.0); ANION GAP 6 mmol/L (5-15); CALCIUM 8.8 mg/dL (8.5-10.1); CHLORIDE 105 mmol/L (98-107); CREATININE 0.96 mg/dL (0.7-1.3)
[2019-07-03 04:55] LABS: ALKALINE PHOSPHATASE 156 U/L (45-117); BILIRUBIN,TOTAL 1.1 mg/dL (0.2-1.0); TOTAL PROTEIN 5.7 g/dL (6.4-8.2)
[2019-07-03 05:22] VITALS: BP 149/99
[2019-07-03] MEDS: CARVEDILOL 3.125 MG TABLET PO SCH ×2 (05:23→18:08)
[2019-07-03] MEDS: GUAIFENESIN 200 MG TABLET PO SCH ×4 (05:23→21:16)
[2019-07-03] MEDS: INSULIN LISPRO 100 UNITS/ML, PEN SQ-INSULIN SCH ×4 (07:00→22:58)
[2019-07-03 07:26] VITALS: BP 130/89
[2019-07-03] MEDS ORDERED: MAGNESIUM SULFATE PMX 2GM/50ML 50 ML IV ONE (08:30)
[2019-07-03] MEDS: FUROSEMIDE 40 MG/4 ML IV SCH ×2 (09:16→17:08)
[2019-07-03] MEDS: SPIRONOLACTONE 25 MG TABLET PO SCH (09:17)
[2019-07-03] MEDS: SODIUM CHLORIDE FLUSH 10ML SYR IVF SCH ×2 (09:17→21:16)
[2019-07-03] MEDS: ENOXAPARIN 100 MG/ML SQ SCH ×2 (09:18→21:16)
[2019-07-03] MEDS: LISINOPRIL 5 MG TABLET PO SCH (09:18)
[2019-07-03] MEDS: ENOXAPARIN 40 MG/0.4 ML SQ SCH ×2 (09:18→21:17)
[2019-07-03] MEDS: ASPIRIN 81 MG TABLET CHEW PO SCH (09:18)
[2019-07-03] MEDS: INSULIN GLARGINE 100 UNITS/ML, PEN SQ-INSULIN SCH ×2 (09:19→22:58)
[2019-07-03] MEDS ORDERED: POTASSIUM CHLORIDE 20 MEQ TAB.ER.PRT PO ONE (10:30)
[2019-07-03 14:21] VITALS: BP 131/74
[2019-07-03] MEDS ORDERED: POTASSIUM CHLORIDE 20 MEQ TAB.ER.PRT PO SCH (17:00)
[2019-07-03 18:08] VITALS: BP 113/67
[2019-07-03 20:35] VITALS: BP 109/72
[2019-07-03] MEDS: ATORVASTATIN 40 MG TABLET PO SCH (21:16)
[2019-07-04 01:19] VITALS: BP 114/78
[2019-07-04] MEDS: CARVEDILOL 3.125 MG TABLET PO SCH (05:48)
[2019-07-04] MEDS: GUAIFENESIN 200 MG TABLET PO SCH ×4 (05:48→20:14)
[2019-07-04 06:01] LABS: CHLORIDE 104 mmol/L (98-107)
[2019-07-04 06:09] LABS: ALANINE AMINOTRANSFERASE 56 U/L (12-78); ALBUMIN 2.5 g/dL (3.4-5.0); ALKALINE PHOSPHATASE 188 U/L (45-117); ANION GAP 9 mmol/L (5-15); BILIRUBIN,TOTAL 0.7 mg/dL (0.2-1.0); CALCIUM 8.3 mg/dL (8.5-10.1); CREATININE 0.82 mg/dL (0.7-1.3); TOTAL PROTEIN 5.4 g/dL (6.4-8.2)
[2019-07-04] MEDS: INSULIN LISPRO 100 UNITS/ML, PEN SQ-INSULIN SCH ×4 (07:00→20:24)
[2019-07-04 07:56] VITALS: BP 120/82
[2019-07-04] MEDS: SPIRONOLACTONE 25 MG TABLET PO SCH (09:09)
[2019-07-04] MEDS: LISINOPRIL 5 MG TABLET PO SCH (09:09)
[2019-07-04] MEDS: FUROSEMIDE 40 MG/4 ML IV SCH ×2 (09:09→17:24)
[2019-07-04] MEDS: ASPIRIN 81 MG TABLET CHEW PO SCH (09:09)
[2019-07-04] MEDS: INSULIN GLARGINE 100 UNITS/ML, PEN SQ-INSULIN SCH ×2 (09:10→20:24)
[2019-07-04] MEDS: ENOXAPARIN 100 MG/ML SQ SCH ×2 (09:11→20:17)
[2019-07-04] MEDS: ENOXAPARIN 40 MG/0.4 ML SQ SCH ×2 (09:11→20:16)
[2019-07-04] MEDS: SODIUM CHLORIDE FLUSH 10ML SYR IVF SCH ×2 (09:11→20:14)
[2019-07-04 14:36] VITALS: BP 123/87
[2019-07-04] MEDS: CARVEDILOL 6.25 MG TABLET PO SCH (17:24)
[2019-07-04] MEDS: POTASSIUM CHLORIDE 20 MEQ TAB.ER.PRT PO SCH (17:24)
[2019-07-04] MEDS: ATORVASTATIN 40 MG TABLET PO SCH (20:14)
[2019-07-04 20:54] VITALS: BP 109/74
[2019-07-05 02:03] VITALS: BP 135/90
[2019-07-05] MEDS: CARVEDILOL 6.25 MG TABLET PO SCH (05:48)
[2019-07-05] MEDS: GUAIFENESIN 200 MG TABLET PO SCH ×4 (05:48→21:20)
[2019-07-05 06:22] LABS: CHLORIDE 105 mmol/L (98-107)
[2019-07-05 06:31] LABS: ALANINE AMINOTRANSFERASE 71 U/L (12-78); ALBUMIN 2.7 g/dL (3.4-5.0); ALKALINE PHOSPHATASE 204 U/L (45-117); ANION GAP 8 mmol/L (5-15); BILIRUBIN,TOTAL 0.9 mg/dL (0.2-1.0); CALCIUM 8.9 mg/dL (8.5-10.1); CREATININE 0.87 mg/dL (0.7-1.3); TOTAL PROTEIN 5.7 g/dL (6.4-8.2)
[2019-07-05] MEDS: INSULIN LISPRO 100 UNITS/ML, PEN SQ-INSULIN SCH ×4 (07:00→21:25)
[2019-07-05 08:19] VITALS: BP 129/93
[2019-07-05] MEDS ORDERED: REGADENOSON 0.4 MG/5 ML SYRINGE ONE (08:35)
[2019-07-05] MEDS: ENOXAPARIN 120MG/0.8ML SQ SCH ×2 (10:46→21:19)
[2019-07-05] MEDS: FUROSEMIDE 40 MG/4 ML IV SCH ×2 (10:46→16:41)
[2019-07-05] MEDS: INSULIN GLARGINE 100 UNITS/ML, PEN SQ-INSULIN SCH ×2 (10:47→21:26)
[2019-07-05] MEDS: LISINOPRIL 5 MG TABLET PO SCH (10:47)
[2019-07-05] MEDS: SPIRONOLACTONE 25 MG TABLET PO SCH (10:47)
[2019-07-05] MEDS: ASPIRIN 81 MG TABLET CHEW PO SCH (10:47)
[2019-07-05] MEDS: POTASSIUM CHLORIDE 20 MEQ TAB.ER.PRT PO SCH ×2 (10:47→16:41)
[2019-07-05] MEDS: SODIUM CHLORIDE FLUSH 10ML SYR IVF SCH ×2 (10:52→21:00)
[2019-07-05 14:44] VITALS: BP 129/89
[2019-07-05 16:40] VITALS: BP 113/81
[2019-07-05] MEDS: CARVEDILOL 25 MG TABLET PO SCH (16:41)
[2019-07-05 19:50] VITALS: BP 92/57
[2019-07-05] MEDS: ATORVASTATIN 40 MG TABLET PO SCH (21:20)
[2019-07-06] MEDS: TEMAZEPAM 15 MG CAPSULE PO PRN ×2 (01:09→21:38)
[2019-07-06 01:49] VITALS: BP 109/74
[2019-07-06] MEDS: GUAIFENESIN 200 MG TABLET PO SCH ×4 (05:31→21:38)
[2019-07-06] MEDS: CARVEDILOL 25 MG TABLET PO SCH ×2 (05:31→17:03)
[2019-07-06 06:02] LABS: ALANINE AMINOTRANSFERASE 68 U/L (12-78); ALBUMIN 2.6 g/dL (3.4-5.0); ANION GAP 7 mmol/L (5-15); CALCIUM 8.8 mg/dL (8.5-10.1); CHLORIDE 105 mmol/L (98-107); CREATININE 0.81 mg/dL (0.7-1.3)
[2019-07-06 06:04] LABS: ALKALINE PHOSPHATASE 193 U/L (45-117); TOTAL PROTEIN 5.6 g/dL (6.4-8.2)
[2019-07-06] MEDS ORDERED: POTASSIUM CHLORIDE 20 MEQ TAB.ER.PRT PO ONE (06:30)
[2019-07-06] MEDS ORDERED: MAGNESIUM SULFATE 3 GM in SODIUM CHLORIDE 0.9% 100 ML IV ONE (06:30)
[2019-07-06] MEDS: INSULIN LISPRO 100 UNITS/ML, PEN SQ-INSULIN SCH ×4 (07:54→21:00)
[2019-07-06] MEDS: FUROSEMIDE 40 MG/4 ML IV SCH ×2 (08:49→20:00)
[2019-07-06] MEDS: LISINOPRIL 5 MG TABLET PO SCH (08:50)
[2019-07-06] MEDS: SODIUM CHLORIDE FLUSH 10ML SYR IVF SCH ×2 (08:50→21:00)
[2019-07-06] MEDS: SPIRONOLACTONE 25 MG TABLET PO SCH (08:50)
[2019-07-06] MEDS: ASPIRIN 81 MG TABLET CHEW PO SCH (08:50)
[2019-07-06] MEDS: POTASSIUM CHLORIDE 20 MEQ TAB.ER.PRT PO SCH ×2 (08:50→17:02)
[2019-07-06] MEDS: ENOXAPARIN 120MG/0.8ML SQ SCH ×2 (08:51→20:30)
[2019-07-06 08:53] VITALS: BP 99/75
[2019-07-06] MEDS: INSULIN GLARGINE 100 UNITS/ML, PEN SQ-INSULIN SCH ×2 (12:22→21:42)
[2019-07-06] MEDS ORDERED: SODIUM CHLORIDE 0.9% 1,000 ML IV SCH (12:29)
[2019-07-06 14:08] VITALS: BP 96/62
[2019-07-06] MEDS ORDERED: FENTANYL PF 100 MCG/2ML ONE (14:41)
[2019-07-06] MEDS ORDERED: MIDAZOLAM 1 MG/ML, 5ML ONE (14:41)
[2019-07-06] MEDS ORDERED: VERAPAMIL 2.5 MG/ML, 2ML ONE (14:42)
[2019-07-06] MEDS ORDERED: BIVALIRUDIN 250 MG ONE (14:42)
[2019-07-06] MEDS ORDERED: TICAGRELOR 90 MG TABLET ONE (14:42)
[2019-07-06] MEDS ORDERED: HEPARIN 1,000 UNITS/ML, 10ML ONE (14:42)
[2019-07-06] MEDS ORDERED: LIDOCAINE-MPF 1%, 5ML ONE (14:42)
[2019-07-06 21:28] VITALS: BP 96/60
[2019-07-06] MEDS: ATORVASTATIN 40 MG TABLET PO SCH (21:38)
[2019-07-07 01:40] VITALS: BP 107/65
[2019-07-07 05:29] LABS: ALANINE AMINOTRANSFERASE 79 U/L (12-78); ALBUMIN 2.8 g/dL (3.4-5.0); ANION GAP 8 mmol/L (5-15); CALCIUM 8.5 mg/dL (8.5-10.1); CHLORIDE 107 mmol/L (98-107)
[2019-07-07 05:32] LABS: ALKALINE PHOSPHATASE 213 U/L (45-117); CREATININE 0.88 mg/dL (0.7-1.3)
[2019-07-07] MEDS: CARVEDILOL 25 MG TABLET PO SCH ×2 (05:48→17:12)
[2019-07-07] MEDS: GUAIFENESIN 200 MG TABLET PO SCH ×4 (05:48→21:54)
[2019-07-07] MEDS: FUROSEMIDE 40 MG/4 ML IV SCH ×3 (07:30→17:11)
[2019-07-07 07:56] VITALS: BP 104/43
[2019-07-07] MEDS: ENOXAPARIN 120MG/0.8ML SQ SCH ×2 (08:31→21:55)
[2019-07-07] MEDS: INSULIN LISPRO 100 UNITS/ML, PEN SQ-INSULIN SCH ×4 (08:31→21:56)
[2019-07-07] MEDS: SODIUM CHLORIDE FLUSH 10ML SYR IVF SCH ×2 (08:32→21:00)
[2019-07-07] MEDS: SPIRONOLACTONE 25 MG TABLET PO SCH ×2 (08:32→09:00)
[2019-07-07] MEDS: POTASSIUM CHLORIDE 20 MEQ TAB.ER.PRT PO SCH ×2 (08:32→17:12)
[2019-07-07] MEDS: INSULIN GLARGINE 100 UNITS/ML, PEN SQ-INSULIN SCH ×3 (08:32→21:56)
[2019-07-07] MEDS: ASPIRIN 81 MG TABLET CHEW PO SCH (08:32)
[2019-07-07] MEDS: LISINOPRIL 5 MG TABLET PO SCH ×2 (08:32→09:00)
[2019-07-07 15:08] VITALS: BP 101/69
[2019-07-07 19:47] VITALS: BP 97/59
[2019-07-07] MEDS: ATORVASTATIN 40 MG TABLET PO SCH (21:54)
[2019-07-07] MEDS: TEMAZEPAM 15 MG CAPSULE PO PRN (22:04)
[2019-07-08] VITALS (7 sets, daily range): BP systolic 93–120; BP diastolic 59–81
[2019-07-08 05:57] LABS: CHLORIDE 107 mmol/L (98-107)
[2019-07-08 06:03] LABS: ALANINE AMINOTRANSFERASE 77 U/L (12-78); ALBUMIN 2.6 g/dL (3.4-5.0); ALKALINE PHOSPHATASE 206 U/L (45-117); ANION GAP 7 mmol/L (5-15); BILIRUBIN,TOTAL 0.6 mg/dL (0.2-1.0); CALCIUM 8.7 mg/dL (8.5-10.1); CREATININE 0.87 mg/dL (0.7-1.3); TOTAL PROTEIN 5.7 g/dL (6.4-8.2)
[2019-07-08] MEDS: CARVEDILOL 25 MG TABLET PO SCH ×2 (06:18→16:58)
[2019-07-08] MEDS: GUAIFENESIN 200 MG TABLET PO SCH ×4 (06:18→21:00)
[2019-07-08] MEDS: INSULIN LISPRO 100 UNITS/ML, PEN SQ-INSULIN SCH ×4 (07:33→21:09)
[2019-07-08] MEDS ORDERED: SODIUM CHLORIDE 0.9% 1,000 ML IV SCH (08:50)
[2019-07-08] MEDS ORDERED: CEFAZOLIN PMX 1GM/50ML 50 ML IVPB ONE (09:00)
[2019-07-08] MEDS: ENOXAPARIN 120MG/0.8ML SQ SCH ×2 (09:19→21:08)
[2019-07-08] MEDS: INSULIN GLARGINE 100 UNITS/ML, PEN SQ-INSULIN SCH ×2 (09:19→14:27)
[2019-07-08] MEDS: FUROSEMIDE 40 MG/4 ML IV SCH ×2 (09:19→16:58)
[2019-07-08] MEDS: POTASSIUM CHLORIDE 20 MEQ TAB.ER.PRT PO SCH ×2 (09:20→16:58)
[2019-07-08] MEDS: ASPIRIN 81 MG TABLET CHEW PO SCH (09:20)
[2019-07-08] MEDS: SODIUM CHLORIDE FLUSH 10ML SYR IVF SCH ×2 (09:21→21:10)
[2019-07-08] MEDS: SPIRONOLACTONE 25 MG TABLET PO SCH (10:35)
[2019-07-08] MEDS: LISINOPRIL 5 MG TABLET PO SCH (10:36)
[2019-07-08] MEDS: TRAZODONE 50MG TABLET PO PRN (21:08)
[2019-07-08] MEDS: ATORVASTATIN 40 MG TABLET PO SCH (21:08)
[2019-07-09] MEDS: ENOXAPARIN 120MG/0.8ML SQ SCH (00:01)
[2019-07-09 03:31] VITALS: BP 111/85
[2019-07-09 05:30] LABS: BASOPHILS # (AUTO) 0.04 x10^3/uL (0-0.1); BASOPHILS % (AUTO) 1 % (0-1); EOSINOPHILS # (AUTO) 0.15 x10^3/uL (0-0.4); EOSINOPHILS % (AUTO) 3 % (1-7); LYMPHOCYTES # (AUTO) 2.01 x10^3/uL (1-3.4); LYMPHOCYTES % (AUTO) 34 % (22-44); MD NO; MEAN CORPUSCULAR HEMOGLOBIN 32.4 pg (27.5-34.5); MEAN CORPUSCULAR HGB CONC 32.8 g/dL (33.2-36.2); MEAN CORPUSCULAR VOLUME 98.8 fL (81-97); MEAN PLATELET VOLUME 12.1 fL (7.4-10.4); MONOCYTES # (AUTO) 0.78 x10^3/uL (0.2-0.8); MONOCYTES % (AUTO) 13 % (2-9); NEUTROPHILS # (AUTO) 2.98 x10^3/uL (1.8-6.8); NEUTROPHILS % (AUTO) 50 % (42-75); PLATELET COUNT 129 x10^3/uL (130-400); RED BLOOD COUNT 4.73 x10^6/uL (4.38-5.82); RED CELL DISTRIBUTION WIDTH 15.9 % (9.4-14.8)
[2019-07-09] MEDS: GUAIFENESIN 200 MG TABLET PO SCH ×4 (05:30→20:35)
[2019-07-09 05:42] LABS: ALBUMIN 2.8 g/dL (3.4-5.0); ANION GAP 7 mmol/L (5-15); CALCIUM 8.7 mg/dL (8.5-10.1); CHLORIDE 107 mmol/L (98-107)
[2019-07-09 05:46] LABS: ALANINE AMINOTRANSFERASE 69 U/L (12-78); ALKALINE PHOSPHATASE 196 U/L (45-117); BILIRUBIN,TOTAL 0.8 mg/dL (0.2-1.0); CREATININE 0.95 mg/dL (0.7-1.3); TOTAL PROTEIN 5.9 g/dL (6.4-8.2)
[2019-07-09 05:54] LABS: INTERNATIONAL NORMALIZED RATIO 1.16 (0.93-1.1); PROTHROMBIN TIME 12.1 Seconds (9.6-11.5)
[2019-07-09 06:08] VITALS: BP 118/81
[2019-07-09] MEDS: CARVEDILOL 25 MG TABLET PO SCH ×2 (06:09→17:45)
[2019-07-09] MEDS: INSULIN LISPRO 100 UNITS/ML, PEN SQ-INSULIN SCH ×4 (07:35→20:40)
[2019-07-09 08:08] VITALS: BP 106/63
[2019-07-09] MEDS: FUROSEMIDE 40 MG/4 ML IV SCH ×2 (09:04→17:45)
[2019-07-09] MEDS: POTASSIUM CHLORIDE 20 MEQ TAB.ER.PRT PO SCH ×2 (09:04→17:30)
[2019-07-09] MEDS: SPIRONOLACTONE 25 MG TABLET PO SCH (09:05)
[2019-07-09] MEDS: ASPIRIN 81 MG TABLET CHEW PO SCH (09:05)
[2019-07-09] MEDS: LISINOPRIL 5 MG TABLET PO SCH (09:05)
[2019-07-09] MEDS: SODIUM CHLORIDE FLUSH 10ML SYR IVF SCH ×2 (09:05→20:41)
[2019-07-09] MEDS: INSULIN GLARGINE 100 UNITS/ML, PEN SQ-INSULIN SCH ×2 (09:07→20:40)
[2019-07-09] MEDS ORDERED: SODIUM CHLORIDE 0.9% 1,000 ML IV SCH (12:00)
[2019-07-09] MEDS ORDERED: FENTANYL PF 100 MCG/2ML ONE (12:46)
[2019-07-09] MEDS ORDERED: MIDAZOLAM 1 MG/ML, 5ML ONE (12:46)
[2019-07-09] MEDS ORDERED: CEFAZOLIN PMX 1GM/50ML 50 ML ONE (12:47)
[2019-07-09] MEDS ORDERED: LIDOCAINE 1%, 20ML ONE ×2 (12:47→13:30)
[2019-07-09] MEDS ORDERED: CEFAZOLIN 1,000 MG ONE (12:47)
[2019-07-09] MEDS ORDERED: HOLD MEDICATION MC PRN (14:30)
[2019-07-09 16:24] VITALS: BP 99/66
[2019-07-09 17:29] VITALS: BP 86/57
[2019-07-09] MEDS ORDERED: WARFARIN 5 MG TABLET PO-COUM ONE (18:06)
[2019-07-09 20:09] VITALS: BP 98/62
[2019-07-09] MEDS: ATORVASTATIN 40 MG TABLET PO SCH (20:40)
[2019-07-09] MEDS: CEFAZOLIN PMX 1GM/50ML 50 ML IVPB SCH (21:46)
[2019-07-09] MEDS ORDERED: ACETAMINOPHEN 650 MG SUPP ONE (22:31)
[2019-07-09] MEDS: ACETAMINOPHEN 325 MG TABLET PO PRN (22:35)
[2019-07-09] MEDS: TRAZODONE 50MG TABLET PO PRN (23:58)
[2019-07-10 01:54] VITALS: BP 99/62
[2019-07-10] MEDS: GUAIFENESIN 200 MG TABLET PO SCH ×4 (05:15→20:44)
[2019-07-10 05:20] LABS: ALBUMIN 2.7 g/dL (3.4-5.0); ANION GAP 5 mmol/L (5-15); CALCIUM 8.4 mg/dL (8.5-10.1); CHLORIDE 106 mmol/L (98-107)
[2019-07-10 05:25] LABS: ALANINE AMINOTRANSFERASE 55 U/L (12-78); ALKALINE PHOSPHATASE 178 U/L (45-117); CREATININE 1.16 mg/dL (0.7-1.3); TOTAL PROTEIN 5.8 g/dL (6.4-8.2)
[2019-07-10 06:05] VITALS: BP 112/77
[2019-07-10] MEDS: CARVEDILOL 25 MG TABLET PO SCH ×2 (06:08→18:07)
[2019-07-10] MEDS: CEFAZOLIN PMX 1GM/50ML 50 ML IVPB SCH (06:08)
[2019-07-10] MEDS: ACETAMINOPHEN 325 MG TABLET PO PRN (06:17)
[2019-07-10 08:09] LABS: INTERNATIONAL NORMALIZED RATIO 1.16 (0.93-1.1); PROTHROMBIN TIME 12.1 Seconds (9.6-11.5)
[2019-07-10 08:18] VITALS: BP 100/69
[2019-07-10] MEDS: INSULIN LISPRO 100 UNITS/ML, PEN SQ-INSULIN SCH ×4 (08:23→20:48)
[2019-07-10] MEDS: FUROSEMIDE 40 MG/4 ML IV SCH ×2 (08:23→17:29)
[2019-07-10] MEDS: INSULIN GLARGINE 100 UNITS/ML, PEN SQ-INSULIN SCH ×2 (08:23→20:47)
[2019-07-10] MEDS: SPIRONOLACTONE 25 MG TABLET PO SCH (08:24)
[2019-07-10] MEDS: POTASSIUM CHLORIDE 20 MEQ TAB.ER.PRT PO SCH ×2 (08:24→15:20)
[2019-07-10] MEDS: LISINOPRIL 5 MG TABLET PO SCH (08:24)
[2019-07-10] MEDS: ASPIRIN 81 MG TABLET CHEW PO SCH (08:24)
[2019-07-10] MEDS: SODIUM CHLORIDE FLUSH 10ML SYR IVF SCH ×2 (08:25→20:48)
[2019-07-10 09:26] LABS: BASOPHILS # (AUTO) 0.03 x10^3/uL (0-0.1); BASOPHILS % (AUTO) 1 % (0-1); EOSINOPHILS # (AUTO) 0.08 x10^3/uL (0-0.4); EOSINOPHILS % (AUTO) 1 % (1-7); LYMPHOCYTES # (AUTO) 1.64 x10^3/uL (1-3.4); LYMPHOCYTES % (AUTO) 28 % (22-44); MD NO; MEAN CORPUSCULAR HEMOGLOBIN 31.6 pg (27.5-34.5); MEAN CORPUSCULAR HGB CONC 32.2 g/dL (33.2-36.2); MEAN CORPUSCULAR VOLUME 98.1 fL (81-97); MEAN PLATELET VOLUME 12.9 fL (7.4-10.4); MONOCYTES # (AUTO) 0.86 x10^3/uL (0.2-0.8); MONOCYTES % (AUTO) 15 % (2-9); NEUTROPHILS # (AUTO) 3.25 x10^3/uL (1.8-6.8); NEUTROPHILS % (AUTO) 56 % (42-75); PLATELET COUNT 128 x10^3/uL (130-400); RED BLOOD COUNT 4.56 x10^6/uL (4.38-5.82); RED CELL DISTRIBUTION WIDTH 15.1 % (9.4-14.8)
[2019-07-10 15:15] VITALS: BP_SYST 107; BP_SYST 87; BP_DIAS 69
[2019-07-10] MEDS ORDERED: WARFARIN 5 MG TABLET PO-COUM ONE (18:00)
[2019-07-10 19:24] VITALS: BP 90/52
[2019-07-10] MEDS: TRAZODONE 50MG TABLET PO PRN (20:44)
[2019-07-10] MEDS: ATORVASTATIN 40 MG TABLET PO SCH (20:46)
[2019-07-10] MEDS: ENOXAPARIN 120MG/0.8ML SQ SCH (20:46)
[2019-07-11 00:59] VITALS: BP 96/59
[2019-07-11] MEDS: CARVEDILOL 25 MG TABLET PO SCH ×2 (05:37→17:18)
[2019-07-11] MEDS: GUAIFENESIN 200 MG TABLET PO SCH ×3 (05:37→16:48)
[2019-07-11 05:38] VITALS: BP 130/101
[2019-07-11 06:27] LABS: INTERNATIONAL NORMALIZED RATIO 1.42 (0.93-1.1); PROTHROMBIN TIME 14.7 Seconds (9.6-11.5)
[2019-07-11 06:37] LABS: CHLORIDE 105 mmol/L (98-107)
[2019-07-11 06:47] LABS: ALANINE AMINOTRANSFERASE 83 U/L (12-78); ALBUMIN 3.2 g/dL (3.4-5.0); ALKALINE PHOSPHATASE 236 U/L (45-117); ANION GAP 6 mmol/L (5-15); BILIRUBIN,TOTAL 1.1 mg/dL (0.2-1.0); CALCIUM 9.3 mg/dL (8.5-10.1); CREATININE 0.99 mg/dL (0.7-1.3); TOTAL PROTEIN 6.9 g/dL (6.4-8.2)
[2019-07-11] MEDS: INSULIN LISPRO 100 UNITS/ML, PEN SQ-INSULIN SCH ×4 (07:00→21:37)
[2019-07-11 07:39] VITALS: BP 126/89
[2019-07-11] MEDS: LISINOPRIL 5 MG TABLET PO SCH (10:23)
[2019-07-11] MEDS: ASPIRIN 81 MG TABLET CHEW PO SCH (10:23)
[2019-07-11] MEDS: SODIUM CHLORIDE FLUSH 10ML SYR IVF SCH ×2 (10:23→21:00)
[2019-07-11] MEDS: POTASSIUM CHLORIDE 20 MEQ TAB.ER.PRT PO SCH (10:23)
[2019-07-11] MEDS: SPIRONOLACTONE 25 MG TABLET PO SCH (10:24)
[2019-07-11] MEDS: INSULIN GLARGINE 100 UNITS/ML, PEN SQ-INSULIN SCH ×2 (10:31→21:38)
[2019-07-11] MEDS: ENOXAPARIN 120MG/0.8ML SQ SCH ×2 (10:31→23:27)
[2019-07-11 12:59] VITALS: BP 122/79
[2019-07-11] MEDS: FUROSEMIDE 40 MG TABLET PO SCH (16:48)
[2019-07-11] MEDS ORDERED: WARFARIN 5 MG TABLET PO-COUM ONE (18:00)
[2019-07-11 19:52] VITALS: BP 105/60
[2019-07-11] MEDS: ATORVASTATIN 40 MG TABLET PO SCH (21:38)
[2019-07-11] MEDS: ACETAMINOPHEN 325 MG TABLET PO PRN (23:42)
[2019-07-12 01:25] VITALS: BP 116/78
[2019-07-12 05:17] LABS: INTERNATIONAL NORMALIZED RATIO 2.54 (0.93-1.1); PROTHROMBIN TIME 25.7 Seconds (9.6-11.5)
[2019-07-12 05:23] LABS: BASOPHILS # (AUTO) 0.04 x10^3/uL (0-0.1); BASOPHILS % (AUTO) 1 % (0-1); EOSINOPHILS # (AUTO) 0.16 x10^3/uL (0-0.4); EOSINOPHILS % (AUTO) 2 % (1-7); LYMPHOCYTES # (AUTO) 2.19 x10^3/uL (1-3.4); LYMPHOCYTES % (AUTO) 29 % (22-44); MD NO; MEAN CORPUSCULAR HEMOGLOBIN 32.2 pg (27.5-34.5); MEAN CORPUSCULAR HGB CONC 32.3 g/dL (33.2-36.2); MEAN CORPUSCULAR VOLUME 99.5 fL (81-97); MEAN PLATELET VOLUME 12.9 fL (7.4-10.4); MONOCYTES # (AUTO) 0.92 x10^3/uL (0.2-0.8); MONOCYTES % (AUTO) 12 % (2-9); NEUTROPHILS # (AUTO) 4.28 x10^3/uL (1.8-6.8); NEUTROPHILS % (AUTO) 56 % (42-75); PLATELET COUNT 128 x10^3/uL (130-400); RED BLOOD COUNT 4.67 x10^6/uL (4.38-5.82)
[2019-07-12 05:24] LABS: ALBUMIN 2.7 g/dL (3.4-5.0); ANION GAP 7 mmol/L (5-15); CALCIUM 8.5 mg/dL (8.5-10.1); CHLORIDE 107 mmol/L (98-107)
[2019-07-12 05:27] LABS: ALANINE AMINOTRANSFERASE 70 U/L (12-78); ALKALINE PHOSPHATASE 186 U/L (45-117); BILIRUBIN,TOTAL 0.7 mg/dL (0.2-1.0); CREATININE 0.98 mg/dL (0.7-1.3); TOTAL PROTEIN 6.1 g/dL (6.4-8.2)
[2019-07-12] MEDS: CARVEDILOL 25 MG TABLET PO SCH (05:57)
[2019-07-12 07:31] VITALS: BP 116/81
[2019-07-12] MEDS: INSULIN LISPRO 100 UNITS/ML, PEN SQ-INSULIN SCH ×2 (07:55→11:21)
[2019-07-12] MEDS: FUROSEMIDE 40 MG TABLET PO SCH (08:16)
[2019-07-12] MEDS: SPIRONOLACTONE 25 MG TABLET PO SCH (08:17)
[2019-07-12] MEDS: ACETAMINOPHEN 325 MG TABLET PO PRN (08:17)
[2019-07-12] MEDS: POTASSIUM CHLORIDE 20 MEQ TAB.ER.PRT PO SCH (08:17)
[2019-07-12] MEDS: LISINOPRIL 5 MG TABLET PO SCH (08:17)
[2019-07-12] MEDS: ASPIRIN 81 MG TABLET CHEW PO SCH (08:17)
[2019-07-12] MEDS: INSULIN GLARGINE 100 UNITS/ML, PEN SQ-INSULIN SCH (08:18)
[2019-07-12] MEDS: SODIUM CHLORIDE FLUSH 10ML SYR IVF SCH (08:19)
[2019-07-12] MEDS ORDERED: INSU100I11 SQ-INSULIN ×2 (10:13)
[2019-07-12] MEDS ORDERED: INSU100I13 SQ-INSULIN ×2 (10:13)
[2019-07-12] MEDS ORDERED: WARF2.5T32 PO-COUM (10:13)
[2019-07-12] MEDS: ENOXAPARIN 120MG/0.8ML SQ SCH (10:40)
[2019-07-12] MEDS ORDERED: WARFARIN 2.5 MG TABLET PO-COUM SCH (18:00)
[2019-07-14] MEDS ORDERED: INSU100I34 SQ (16:55)
[2019-07-14] MEDS ORDERED: INSU100C5 SQ-INSULIN (16:55)
== END 2019-07-12 11:44 | disposition home health service (06) | DRG 224 ==
LOC: ED 17:45 → EDIP 18:30 → 3N 20:47 → 5SO 23:37 → DCLOUNGE 07-12 11:17
PROVIDERS: ADMIT Family Medicine; ATTEND Family Medicine
PROC: 4A023N7 Measurement of Cardiac Sampling and Pressure, Left Heart, Percutaneous Approach (ICD-10-PCS; principal; 2019-07-06)
PROC: B2111ZZ Fluoroscopy of Multiple Coronary Arteries using Low Osmolar Contrast (ICD-10-PCS; 2019-07-06)
PROC: B2151ZZ Fluoroscopy of Left Heart using Low Osmolar Contrast (ICD-10-PCS; 2019-07-06)
PROC: 4A033BC Measurement of Arterial Pressure, Coronary, Percutaneous Approach (ICD-10-PCS; 2019-07-06)
PROC: 0JH608Z Insertion of Defibrillator Generator into Chest Subcutaneous Tissue and Fascia, Open Approach (ICD-10-PCS; 2019-07-09)
PROC: 02HK3KZ Insertion of Defibrillator Lead into Right Ventricle, Percutaneous Approach (ICD-10-PCS; 2019-07-09)
PROC: 02H63KZ Insertion of Defibrillator Lead into Right Atrium, Percutaneous Approach (ICD-10-PCS; 2019-07-09)
DX: I47.2 Ventricular tachycardia (principal); I50.41 Acute combined systolic (congestive) and diastolic (congestive) heart failure; E46 Unspecified protein-calorie malnutrition; I24.8 Other forms of acute ischemic heart disease; I42.0 Dilated cardiomyopathy; I11.0 Hypertensive heart disease with heart failure; E66.01 Morbid (severe) obesity due to excess calories; N50.89 Other specified disorders of the male genital organs; I51.3 Intracardiac thrombosis, not elsewhere classified; Z68.39 Body mass index [BMI] 39.0-39.9, adult; E78.5 Hyperlipidemia, unspecified; F12.90 Cannabis use, unspecified, uncomplicated; G47.33 Obstructive sleep apnea (adult) (pediatric); I25.10 Atherosclerotic heart disease of native coronary artery without angina pectoris; I77.819 Aortic ectasia, unspecified site; I25.82 Chronic total occlusion of coronary artery; I27.20 Pulmonary hypertension, unspecified; J44.9 Chronic obstructive pulmonary disease, unspecified; K76.1 Chronic passive congestion of liver; M06.9 Rheumatoid arthritis, unspecified; M16.0 Bilateral primary osteoarthritis of hip; E11.9 Type 2 diabetes mellitus without complications; N40.0 Benign prostatic hyperplasia without lower urinary tract symptoms; Z79.01 Long term (current) use of anticoagulants; Z82.49 Family history of ischemic heart disease and other diseases of the circulatory system; Z82.61 Family history of arthritis; Z87.891 Personal history of nicotine dependence; Z91.14 Patient's other noncompliance with medication regimen; Z90.49 Acquired absence of other specified parts of digestive tract
CPT/HCPCS: 33249; 36415; 71045; 78452; 80048; 80053; 80061; 82947; 82962; 83036; 83735; 83880; 84100; 84484; 85025; 85610; 90686; 93005; 93017; 93306; 93454; 93571; 94640; 99156; 99157; C1721; C1769; C1779; C1892; C1894; C1895; G0378; J0583; J0690; J1644; J1650; J1940; J2250; J2785; J3010; J3475; J7620; A9502; J1815; J7030; Q9967

== ENCOUNTER 2020-02-21 22:44 | Emergency (ER) | payer MEDICARE ==
[~2020-02-21] VITALS: Ht 180.3 cm; Wt 119.1 kg
[~2020-02-21 22:44] MED LIST changes: +APIX5TAB PO; +ASPI81TA45 PO; +CARV6.2512 PO; +FURO40TA6 PO; +GABA-826 PO; -GLIM2TAB3 PO; +GLIM2TAB7 PO; +INSU100C5 SQ-INSULIN; +INSU100I11 SQ-INSULIN; +INSU100I13 SQ-INSULIN; +INSU100I34 SQ; +OXYC-302 PO; +OXYC5TAB3 PO; +PIPE3.373 IV; +POTA20TA6 PO; +SPIR25TA PO; +WARF-36 PO-COUM; +WARF2.5T32 PO-COUM
--- NOTE | 2020-02-21 23:29 | NUR ---
This is a 64 yo male coming in for R leg diabetic wounds, and was diagnosed with a DVT to right lower leg at the beginning of the year, now has worsening pain in that area. Patient was in the hospital for 4-5 months at beginning of year for Tx. Patient was hospitalized last month for dyspnea as well. C/O increased work of breathing, lung sounds clear throughout. Equal strong DP pulses palpated bilaterally. Diminished sensation noted to bilateral lower extremities. Patient is non compliant with all medications, supposed to be taking metformin and coumadin. All monitoring in place, VSS. Call Melania molina PA to room for eval
[2020-02-22] MEDS ORDERED: SODIUM CHLORIDE FLUSH 10ML SYR IVF ONE
[2020-02-22 00:01] LABS: BASOPHILS # (AUTO) 0.04 x10^3/uL (0-0.1); BASOPHILS % (AUTO) 0 % (0-1); EOSINOPHILS # (AUTO) 0.12 x10^3/uL (0-0.4); EOSINOPHILS % (AUTO) 1 % (1-7); LYMPHOCYTES # (AUTO) 2.04 x10^3/uL (1-3.4); LYMPHOCYTES % (AUTO) 18 % (22-44); MD NO; MEAN CORPUSCULAR HEMOGLOBIN 27.9 pg (27.5-34.5); MEAN CORPUSCULAR HGB CONC 31.1 g/dL (33.2-36.2); MEAN CORPUSCULAR VOLUME 89.8 fL (81-97); MEAN PLATELET VOLUME 10.4 fL (7.4-10.4); MONOCYTES # (AUTO) 1.17 x10^3/uL (0.2-0.8); MONOCYTES % (AUTO) 10 % (2-9); NEUTROPHILS # (AUTO) 7.88 x10^3/uL (1.8-6.8); NEUTROPHILS % (AUTO) 70 % (42-75); PLATELET COUNT 176 x10^3/uL (130-400); RED BLOOD COUNT 4.72 x10^6/uL (4.38-5.82); RED CELL DISTRIBUTION WIDTH 16.3 % (9.4-14.8)
[2020-02-22 00:09] LABS: ALANINE AMINOTRANSFERASE 54 U/L (12-78); ALBUMIN 3.3 g/dL (3.4-5.0); ANION GAP 7 mmol/L (5-15); CALCIUM 8.4 mg/dL (8.5-10.1); CHLORIDE 107 mmol/L (98-107); CREATININE 0.97 mg/dL (0.7-1.3)
[2020-02-22 00:13] LABS: ALKALINE PHOSPHATASE 192 U/L (45-117); BILIRUBIN,TOTAL 1.1 mg/dL (0.2-1.0); TOTAL PROTEIN 6.5 g/dL (6.4-8.2)
--- NOTE | 2020-02-22 00:44 | NUR ---
Patient resting on gurney, making moaning noises, when asked what is wrong, patient starts talking about "people need me at the senior care", no c/o any medical reasons. Monintoring in place, VSS, call light in reach
--- NOTE | 2020-02-22 01:10 | NUR ---
Call placed to ultrasound to determine why delay in getting patient, ultrasound team called in, will come to get patietn soon
--- NOTE | 2020-02-22 01:39 | NUR ---
mechanical design technician to room
[2020-02-22 02:22] VITALS: BP 146/92
--- NOTE | 2020-02-22 02:32 | NUR ---
Patient irritated and states he wants to leave, educated patient we are waiting for US results, and without results it could be unsafe to leave at this time. Patient agreeable, waiting for US to result
--- NOTE | 2020-02-22 03:07 | NUR ---
Report to LYNNE Dean
--- NOTE | 2020-02-22 03:27 | NUR ---
Assist RN: pt d/c'd to home care. Pt alert, oriented and ambulatory. Pt educated on home care, RX's and follow-up. Pt ambulatory out of ER.
== END 2020-02-22 03:30 | disposition home or self-care (01) ==
LOC: ED 23:12
DX: L03.115 Cellulitis of right lower limb (principal); I11.0 Hypertensive heart disease with heart failure; I87.2 Venous insufficiency (chronic) (peripheral); R60.0 Localized edema; R05 Cough; E11.65 Type 2 diabetes mellitus with hyperglycemia; J44.9 Chronic obstructive pulmonary disease, unspecified; M19.90 Unspecified osteoarthritis, unspecified site; E78.5 Hyperlipidemia, unspecified; R00.0 Tachycardia, unspecified; I50.9 Heart failure, unspecified; Z72.9 Problem related to lifestyle, unspecified; Z87.891 Personal history of nicotine dependence
CPT/HCPCS: 36415; 71045; 80053; 82962; 83880; 85025; 93005; 93970; 99285

== ENCOUNTER 2020-02-23 14:59 | Inpatient (IN) | payer MEDICARE ==
[~2020-02-23] VITALS: Ht 180.3 cm; Wt 124.6 kg
[2020-02-23] MEDS ORDERED: ASPIRIN 81 MG TABLET CHEW ONE (16:20)
[2020-02-23] MEDS ORDERED: ASPIRIN 81 MG TABLET CHEW PO ONE (16:30)
[2020-02-23] MEDS ORDERED: SODIUM CHLORIDE FLUSH 10ML SYR IVF ONE (16:30)
--- NOTE | 2020-02-23 16:36 | NUR ---
labs/xr/med per sep. nad. call fitzpatrick. c/o sob but sats 95%+, no incr wob noted. lungs dim bilat. wound RLE r/t fasciotomy earlier this ear. redness/swelling. bilat 4+ pitting edema lowers. also c/o full abd. sahm aware of ivf given by ems. as
[2020-02-23 16:37] LABS: BASOPHILS # (AUTO) 0.04 x10^3/uL (0-0.1); BASOPHILS % (AUTO) 0 % (0-1); EOSINOPHILS # (AUTO) 0.21 x10^3/uL (0-0.4); EOSINOPHILS % (AUTO) 2 % (1-7); LYMPHOCYTES # (AUTO) 1.41 x10^3/uL (1-3.4); LYMPHOCYTES % (AUTO) 11 % (22-44); MD NO; MEAN CORPUSCULAR HEMOGLOBIN 28.3 pg (27.5-34.5); MEAN CORPUSCULAR HGB CONC 31.6 g/dL (33.2-36.2); MEAN CORPUSCULAR VOLUME 89.5 fL (81-97); MEAN PLATELET VOLUME 10.7 fL (7.4-10.4); MONOCYTES # (AUTO) 0.94 x10^3/uL (0.2-0.8); MONOCYTES % (AUTO) 7 % (2-9); NEUTROPHILS # (AUTO) 10.56 x10^3/uL (1.8-6.8); NEUTROPHILS % (AUTO) 80 % (42-75); PLATELET COUNT 163 x10^3/uL (130-400); RED BLOOD COUNT 4.64 x10^6/uL (4.38-5.82); RED CELL DISTRIBUTION WIDTH 16.6 % (9.4-14.8)
[2020-02-23 17:16] LABS: ALANINE AMINOTRANSFERASE 49 U/L (12-78); ALBUMIN 3.2 g/dL (3.4-5.0); ANION GAP 9 mmol/L (5-15); CALCIUM 8.1 mg/dL (8.5-10.1); CHLORIDE 103 mmol/L (98-107); CREATININE 1.14 mg/dL (0.7-1.3)
[2020-02-23 17:21] LABS: ALKALINE PHOSPHATASE 217 U/L (45-117); BILIRUBIN,TOTAL 1.1 mg/dL (0.2-1.0); TOTAL PROTEIN 6.6 g/dL (6.4-8.2); TROPONIN I 0.047 ng/mL (0.000-0.045)
--- NOTE | 2020-02-23 17:28 | NUR ---
BREAK RN- PT RESTING IN BED, REQUESTING SNACKS. WILL VERIFY WITH MD.
[2020-02-23] MEDS: APIXABAN 5 MG TABLET PO SCH (18:00)
[2020-02-23] MEDS ORDERED: SODIUM CHLORIDE FLUSH 10ML SYR IVF PRN (18:00)
[2020-02-23] MEDS: CARVEDILOL 6.25 MG TABLET PO SCH ×2 (18:00→20:45)
--- NOTE | 2020-02-23 18:08 | NUR ---
tbadm, ordered dinner tray, agrees w poc. no needs at this time vss. as
--- NOTE | 2020-02-23 18:25 | NUR ---
report to janneth smith. as
[2020-02-23 19:11] VITALS: BP 112/83
[2020-02-23] MEDS ORDERED: DOCUSATE 100 MG CAPSULE PO PRN (20:00)
[2020-02-23] MEDS ORDERED: hydrALAzine 20 MG/ML, 1ML IVPush PRN (20:00)
[2020-02-23] MEDS: GABAPENTIN 100 MG CAPSULE PO SCH ×2 (20:45→20:46)
[2020-02-23] MEDS ORDERED: LORazepam 2 MG/ML, 1ML IVPush ONE (22:00)
[2020-02-23] MEDS: ATORVASTATIN 40 MG TABLET PO SCH (22:02)
[2020-02-23] MEDS: CEFTRIAXONE PMX 2GM/50ML 50 ML IV SCH (22:02)
[2020-02-24] MEDS ORDERED: LIDODERM REMOVE PATCH NOTE XX PRN (00:30)
[2020-02-24 01:24] VITALS: BP 125/92
[2020-02-24] MEDS: INSULIN LISPRO 100 UNITS/ML, PEN SQ-INSULIN SCH ×5 (01:30→21:40)
[2020-02-24] MEDS: GABAPENTIN 300 MG CAPSULE PO PRN (05:04)
[2020-02-24 05:11] LABS: BASOPHILS # (AUTO) 0.01 x10^3/uL (0-0.1); BASOPHILS % (AUTO) 0 % (0-1); EOSINOPHILS # (AUTO) 0.17 x10^3/uL (0-0.4); EOSINOPHILS % (AUTO) 2 % (1-7); LYMPHOCYTES # (AUTO) 1.58 x10^3/uL (1-3.4); LYMPHOCYTES % (AUTO) 15 % (22-44); MD NO; MEAN CORPUSCULAR HEMOGLOBIN 28.4 pg (27.5-34.5); MEAN CORPUSCULAR HGB CONC 31.8 g/dL (33.2-36.2); MEAN CORPUSCULAR VOLUME 89.4 fL (81-97); MONOCYTES # (AUTO) 0.74 x10^3/uL (0.2-0.8); MONOCYTES % (AUTO) 7 % (2-9); NEUTROPHILS # (AUTO) 8.09 x10^3/uL (1.8-6.8); NEUTROPHILS % (AUTO) 77 % (42-75); PLATELET COUNT 138 x10^3/uL (130-400); RED BLOOD COUNT 4.64 x10^6/uL (4.38-5.82); RED CELL DISTRIBUTION WIDTH 16.3 % (9.4-14.8)
[2020-02-24 05:20] LABS: ANION GAP 4 mmol/L (5-15); CALCIUM 8.7 mg/dL (8.5-10.1); CHLORIDE 107 mmol/L (98-107); CREATININE 0.95 mg/dL (0.7-1.3)
[2020-02-24] MEDS: LIDODERM 5% PATCH TD PRN (05:21)
[2020-02-24] MEDS: CARVEDILOL 6.25 MG TABLET PO SCH ×2 (06:15→17:25)
[2020-02-24] MEDS: APIXABAN 5 MG TABLET PO SCH ×2 (06:16→21:32)
[2020-02-24] MEDS: ASPIRIN 81 MG TABLET EC PO SCH (06:16)
[2020-02-24 07:26] VITALS: BP 132/99
[2020-02-24] MEDS: SPIRONOLACTONE 25 MG TABLET PO SCH (08:10)
[2020-02-24] MEDS: FUROSEMIDE 40 MG TABLET PO SCH (08:11)
[2020-02-24] MEDS: GABAPENTIN 100 MG CAPSULE PO SCH ×3 (08:11→21:32)
[2020-02-24] MEDS: LISINOPRIL 20 MG TABLET PO SCH (08:11)
[2020-02-24] MEDS: POTASSIUM CHLORIDE 20 MEQ TAB.ER.PRT PO SCH (08:13)
[2020-02-24 11:56] LABS: AMPHETAMINE SCREEN, URINE Negative (Negative); BARBITURATE SCREEN, URINE Negative (Negative); BENZODIAZEPINE SCREEN, URINE Negative (Negative); CANNABINOID SCREEN, URINE Negative (Negative); COCAINE SCREEN, URINE Negative (Negative); METHADONE SCREEN, URINE Negative (Negative); OPIATE SCREEN, URINE Negative (Negative)
[2020-02-24 13:03] VITALS: BP 107/73
[2020-02-24 19:24] VITALS: BP 115/84
[2020-02-24] MEDS: ATORVASTATIN 40 MG TABLET PO SCH (21:32)
[2020-02-24] MEDS: CEFTRIAXONE PMX 2GM/50ML 50 ML IV SCH (21:33)
[2020-02-24 23:43] VITALS: BP 118/83
[2020-02-25] MEDS: ASPIRIN 81 MG TABLET EC PO SCH (05:01)
[2020-02-25] MEDS: CARVEDILOL 6.25 MG TABLET PO SCH ×2 (05:01→17:44)
[2020-02-25 08:05] VITALS: BP 121/83
[2020-02-25] MEDS: SPIRONOLACTONE 25 MG TABLET PO SCH (08:31)
[2020-02-25] MEDS: FUROSEMIDE 40 MG TABLET PO SCH (08:31)
[2020-02-25] MEDS: GABAPENTIN 100 MG CAPSULE PO SCH ×3 (08:31→20:35)
[2020-02-25] MEDS: POTASSIUM CHLORIDE 20 MEQ TAB.ER.PRT PO SCH (08:31)
[2020-02-25] MEDS: APIXABAN 5 MG TABLET PO SCH ×2 (08:31→20:35)
[2020-02-25] MEDS: LISINOPRIL 20 MG TABLET PO SCH (08:31)
[2020-02-25] MEDS: INSULIN LISPRO 100 UNITS/ML, PEN SQ-INSULIN SCH ×4 (08:45→20:42)
[2020-02-25 12:13] VITALS: BP 97/65
[2020-02-25 19:21] VITALS: BP 111/76
[2020-02-25] MEDS: ATORVASTATIN 40 MG TABLET PO SCH (20:35)
[2020-02-25] MEDS: CEFTRIAXONE PMX 2GM/50ML 50 ML IV SCH (21:56)
[2020-02-26] MEDS: MELATONIN 5 MG TABLET PO PRN ×2 (00:06→22:08)
[2020-02-26 00:50] VITALS: BP 117/74
[2020-02-26 04:23] VITALS: BP 111/82
[2020-02-26] MEDS: ASPIRIN 81 MG TABLET EC PO SCH (04:26)
[2020-02-26] MEDS: CARVEDILOL 6.25 MG TABLET PO SCH ×2 (04:26→17:26)
[2020-02-26 06:36] VITALS: BP 116/79
[2020-02-26] MEDS: APIXABAN 5 MG TABLET PO SCH ×2 (08:05→22:08)
[2020-02-26] MEDS: POTASSIUM CHLORIDE 20 MEQ TAB.ER.PRT PO SCH (08:05)
[2020-02-26] MEDS: LISINOPRIL 20 MG TABLET PO SCH (08:06)
[2020-02-26] MEDS: INSULIN LISPRO 100 UNITS/ML, PEN SQ-INSULIN SCH ×4 (08:06→22:09)
[2020-02-26] MEDS: SPIRONOLACTONE 25 MG TABLET PO SCH (08:06)
[2020-02-26] MEDS: FUROSEMIDE 40 MG TABLET PO SCH (08:06)
[2020-02-26] MEDS: GABAPENTIN 100 MG CAPSULE PO SCH ×3 (08:06→22:08)
[2020-02-26] MEDS: GABAPENTIN 300 MG CAPSULE PO PRN (12:03)
[2020-02-26 12:16] VITALS: BP 117/83
[2020-02-26 14:44] VITALS: BP 125/80
[2020-02-26 18:37] VITALS: BP 131/81
[2020-02-26] MEDS: ATORVASTATIN 40 MG TABLET PO SCH (22:08)
[2020-02-26] MEDS: DOXYCYCLINE 100MG CAP PO SCH (22:08)
[2020-02-26] MEDS: LIDODERM 5% PATCH TD PRN (22:22)
[2020-02-27 00:24] VITALS: BP 131/81
[2020-02-27] MEDS: GABAPENTIN 300 MG CAPSULE PO PRN (03:08)
[2020-02-27 05:53] LABS: ANION GAP 6 mmol/L (5-15); CALCIUM 8.4 mg/dL (8.5-10.1); CHLORIDE 105 mmol/L (98-107); CREATININE 0.85 mg/dL (0.7-1.3)
[2020-02-27] MEDS: ASPIRIN 81 MG TABLET EC PO SCH (06:20)
[2020-02-27] MEDS: CARVEDILOL 6.25 MG TABLET PO SCH (06:20)
[2020-02-27 07:30] VITALS: BP 125/89
[2020-02-27 07:41] LABS: MEAN CORPUSCULAR HEMOGLOBIN 28.5 pg (27.5-34.5); MEAN CORPUSCULAR HGB CONC 31.7 g/dL (33.2-36.2); MEAN CORPUSCULAR VOLUME 90.1 fL (81-97); MEAN PLATELET VOLUME 11.7 fL (7.4-10.4); PLATELET COUNT 91 x10^3/uL (130-400); RED BLOOD COUNT 4.46 x10^6/uL (4.38-5.82); RED CELL DISTRIBUTION WIDTH 16.8 % (9.4-14.8)
[2020-02-27] MEDS: APIXABAN 5 MG TABLET PO SCH (07:41)
[2020-02-27] MEDS: FUROSEMIDE 40 MG TABLET PO SCH (07:41)
[2020-02-27] MEDS: INSULIN LISPRO 100 UNITS/ML, PEN SQ-INSULIN SCH ×2 (07:41→11:35)
[2020-02-27] MEDS: LISINOPRIL 20 MG TABLET PO SCH (07:42)
[2020-02-27] MEDS: SPIRONOLACTONE 25 MG TABLET PO SCH (07:42)
[2020-02-27] MEDS: DOXYCYCLINE 100MG CAP PO SCH (07:42)
[2020-02-27] MEDS: GABAPENTIN 100 MG CAPSULE PO SCH (07:42)
[2020-02-27 07:44] LABS: MD SCAN
[2020-02-27 07:45] LABS: BASOPHILS # (AUTO) 0.02 x10^3/uL (0-0.1); BASOPHILS % (AUTO) 0 % (0-1); EOSINOPHILS # (AUTO) 0.13 x10^3/uL (0-0.4); EOSINOPHILS % (AUTO) 2 % (1-7); LYMPHOCYTES # (AUTO) 1.09 x10^3/uL (1-3.4); LYMPHOCYTES % (AUTO) 15 % (22-44); MONOCYTES # (AUTO) 0.82 x10^3/uL (0.2-0.8); MONOCYTES % (AUTO) 11 % (2-9); NEUTROPHILS # (AUTO) 5.46 x10^3/uL (1.8-6.8); NEUTROPHILS % (AUTO) 73 % (42-75)
[2020-02-27] MEDS: POTASSIUM CHLORIDE 20 MEQ TAB.ER.PRT PO SCH (09:00)
[2020-02-27] MEDS ORDERED: INSU100I13 SQ-INSULIN (10:46)
[2020-02-27] MEDS ORDERED: APIX5TAB PO (10:46)
[2020-02-27] MEDS ORDERED: FURO40TA6 PO (10:46)
[2020-02-27] MEDS ORDERED: DOXY100C2 PO (10:46)
[2020-02-27] MEDS ORDERED: ATOR40TA78 PO (10:46)
[2020-02-27] MEDS ORDERED: LISI-170 PO (10:46)
[2020-02-27] MEDS ORDERED: CARV6.2512 PO (10:46)
[2020-02-27] MEDS ORDERED: INSU100C5 SQ-INSULIN (10:46)
[2020-02-27] MEDS ORDERED: GABA-826 PO (10:46)
[2020-02-27] MEDS ORDERED: ASPI81TA45 PO (10:46)
[2020-02-27] MEDS ORDERED: SPIR25TA PO (10:46)
[2020-02-27 13:23] VITALS: BP 122/79
== END 2020-02-27 13:42 | disposition home or self-care (01) | DRG 637 ==
LOC: ED 15:31 → EDIP 17:51 → 5SO 18:58 → 3N 02-26 14:25 → DCLOUNGE 02-27 13:28
PROVIDERS: ADMIT Family Medicine; ATTEND Hospitalist
DX: E11.622 Type 2 diabetes mellitus with other skin ulcer (principal); E43 Unspecified severe protein-calorie malnutrition; L97.919 Non-pressure chronic ulcer of unspecified part of right lower leg with unspecified severity; I50.22 Chronic systolic (congestive) heart failure; L03.90 Cellulitis, unspecified; I82.C11 Acute embolism and thrombosis of right internal jugular vein; Z91.19 Patient's noncompliance with other medical treatment and regimen; Z79.4 Long term (current) use of insulin; I11.0 Hypertensive heart disease with heart failure; T38.0X5A Adverse effect of glucocorticoids and synthetic analogues, initial encounter; D72.829 Elevated white blood cell count, unspecified; E66.01 Morbid (severe) obesity due to excess calories; N40.0 Benign prostatic hyperplasia without lower urinary tract symptoms; I25.10 Atherosclerotic heart disease of native coronary artery without angina pectoris; R47.81 Slurred speech; Z59.0 Homelessness; M06.9 Rheumatoid arthritis, unspecified; E11.65 Type 2 diabetes mellitus with hyperglycemia; J44.9 Chronic obstructive pulmonary disease, unspecified; I27.20 Pulmonary hypertension, unspecified; Z91.14 Patient's other noncompliance with medication regimen; Z79.899 Other long term (current) drug therapy; Z79.82 Long term (current) use of aspirin; Z68.38 Body mass index [BMI] 38.0-38.9, adult; Z80.3 Family history of malignant neoplasm of breast; Z82.49 Family history of ischemic heart disease and other diseases of the circulatory system; Z86.718 Personal history of other venous thrombosis and embolism
CPT/HCPCS: 36415; 70450; 71045; 80048; 80053; 80307; 82962; 83880; 84484; 85025; 93005; 93306; 93880; 99285; G0378; J0696; 92522-GN; J1815; J2060

== ENCOUNTER 2020-03-04 13:16 | Emergency (ER) | payer MEDICARE ==
[~2020-03-04] VITALS: Ht 180.3 cm; Wt 130.0 kg
[~2020-03-04 13:16] MED LIST changes: +DOXY100C2 PO
--- NOTE | 2020-03-04 13:28 | NUR ---
THIS IS A 64 YO M BIB EMS W/ C/O RT LEG PAIN. SEEN 5 DAYS AGO FOR SAME, DC W/ ABX BUT IS UNABLE TO AFFORD. NO NEW C/O AT THIS TIME. PT RESTING ON GURNEY W/ CALL LIGHT IN REACH AND SIDE RAILS UPX2. NILDA, PRADIP. AWAITING ED EVAL.
--- NOTE | 2020-03-04 14:46 | NUR ---
AT BEDSIDE FOR ED EVAL.
[2020-03-04] MEDS ORDERED: SODIUM CHLORIDE FLUSH 10ML SYR IVF ONE (15:00)
--- NOTE | 2020-03-04 15:04 | NUR ---
XR IN ROOM.
[2020-03-04 15:13] LABS: BASOPHILS # (AUTO) 0.03 x10^3/uL (0-0.1); BASOPHILS % (AUTO) 1 % (0-1); EOSINOPHILS # (AUTO) 0.15 x10^3/uL (0-0.4); EOSINOPHILS % (AUTO) 2 % (1-7); LYMPHOCYTES # (AUTO) 1.11 x10^3/uL (1-3.4); LYMPHOCYTES % (AUTO) 14 % (22-44); MD NO; MEAN CORPUSCULAR HEMOGLOBIN 28.6 pg (27.5-34.5); MEAN CORPUSCULAR VOLUME 89.3 fL (81-97); MEAN PLATELET VOLUME 10.3 fL (7.4-10.4); MONOCYTES # (AUTO) 0.93 x10^3/uL (0.2-0.8); MONOCYTES % (AUTO) 12 % (2-9); NEUTROPHILS # (AUTO) 5.51 x10^3/uL (1.8-6.8); NEUTROPHILS % (AUTO) 71 % (42-75); PLATELET COUNT 174 x10^3/uL (130-400); RED BLOOD COUNT 4.33 x10^6/uL (4.38-5.82); RED CELL DISTRIBUTION WIDTH 17.3 % (9.4-14.8)
[2020-03-04 15:19] LABS: ALANINE AMINOTRANSFERASE 36 U/L (12-78); ALBUMIN 3.1 g/dL (3.4-5.0); ANION GAP 6 mmol/L (5-15); CALCIUM 8.3 mg/dL (8.5-10.1); CHLORIDE 107 mmol/L (98-107)
--- NOTE | 2020-03-04 15:20 | NUR ---
US IN ROOM.
[2020-03-04 15:24] LABS: ALKALINE PHOSPHATASE 175 U/L (45-117); BILIRUBIN,TOTAL 1.1 mg/dL (0.2-1.0); CREATININE 1.07 mg/dL (0.7-1.3); TOTAL PROTEIN 6.2 g/dL (6.4-8.2)
[2020-03-04] MEDS ORDERED: CLINDAMYCIN 300 MG CAPSULE ONE (15:47)
[2020-03-04 15:50] VITALS: BP 130/82
[2020-03-04] MEDS ORDERED: CLINDAMYCIN 300 MG CAPSULE PO ONE (16:00)
--- NOTE | 2020-03-04 16:47 | NUR ---
Patient given discharge instructions and they have confirmed that they understand the instructions. Patient ambulatory with steady gait.
== END 2020-03-04 16:49 | disposition home or self-care (01) ==
LOC: ED 13:49
DX: I83.218 Varicose veins of right lower extremity with both ulcer of other part of lower extremity and inflammation (principal); I83.228 Varicose veins of left lower extremity with both ulcer of other part of lower extremity and inflammation; L97.229 Non-pressure chronic ulcer of left calf with unspecified severity; L97.219 Non-pressure chronic ulcer of right calf with unspecified severity; Z72.9 Problem related to lifestyle, unspecified; Z59.0 Homelessness; R94.31 Abnormal electrocardiogram [ECG] [EKG]; R06.89 Other abnormalities of breathing; E11.9 Type 2 diabetes mellitus without complications; E78.5 Hyperlipidemia, unspecified; I50.9 Heart failure, unspecified; I11.0 Hypertensive heart disease with heart failure; M19.90 Unspecified osteoarthritis, unspecified site
CPT/HCPCS: 36415; 71045; 80053; 83880; 85025; 93005; 93970; 99285

== ENCOUNTER 2020-03-06 16:39 | Inpatient (IN) | payer MEDICARE ==
[~2020-03-06] VITALS: Ht 180.3 cm; Wt 129.0 kg
--- NOTE | 2020-03-06 16:47 | NUR ---
TASK RN: PT BIB [facility] W CO L SIDED CHEST PAIN X TWO HOURS. DENIES ASSOCIATED S/S. PT ARRIVES W MARKEDLY DISTENDED, NONTENDER ABD AND BLE EDEMA/ERYTHEMA. PT REPORTEDLY WAS SEEN IN ED YESTERDAY FOR SAME, RX'D MEDICATIONS WHICH HE DID NOT FILL. HX OF [place], DM2, AND HTN. BP/SPO/ECG MONITORING IN PLACE. NSR ON MONITOR WITH FREQUENT PVCs. EKG COMPLETED UPON ARRIVAL. REPORT TO PRIMARY RNANTONIA.
--- NOTE | 2020-03-06 17:01 | NUR ---
REPORT RECEIVED FROM DEO BATISTA. PT HAS INCREASED WOB FROM 2 DAYS AGO WHEN CARED FOR BY THIS RN. PT IS TACHYCARDIC AND TACHYPNEIC. PT RESTING ON GURNEY W/ CALL LIGHT IN REACH AND SIDE RAILS UPX2. CONNECTED TO ALL MONITORING. AWAITING ED EVAL. WILL CONTINUE TO MONITOR.
--- NOTE | 2020-03-06 17:12 | NUR ---
PITO SARKAR AT BEDSIDE FOR ED EVAL.
--- NOTE | 2020-03-06 17:26 | NUR ---
LAB IN ROOM.
[2020-03-06] MEDS ORDERED: SODIUM CHLORIDE FLUSH 10ML SYR IVF ONE (17:30)
[2020-03-06 17:47] LABS: BASOPHILS # (AUTO) 0.01 x10^3/uL (0-0.1); BASOPHILS % (AUTO) 0 % (0-1); EOSINOPHILS # (AUTO) 0.05 x10^3/uL (0-0.4); EOSINOPHILS % (AUTO) 1 % (1-7); LYMPHOCYTES # (AUTO) 0.45 x10^3/uL (1-3.4); LYMPHOCYTES % (AUTO) 7 % (22-44); MD NO; MEAN CORPUSCULAR HEMOGLOBIN 28.8 pg (27.5-34.5); MEAN CORPUSCULAR HGB CONC 32.5 g/dL (33.2-36.2); MEAN CORPUSCULAR VOLUME 88.7 fL (81-97); MEAN PLATELET VOLUME 10.5 fL (7.4-10.4); MONOCYTES # (AUTO) 0.26 x10^3/uL (0.2-0.8); MONOCYTES % (AUTO) 4 % (2-9); NEUTROPHILS # (AUTO) 6.15 x10^3/uL (1.8-6.8); NEUTROPHILS % (AUTO) 89 % (42-75); PLATELET COUNT 181 x10^3/uL (130-400); RED BLOOD COUNT 4.47 x10^6/uL (4.38-5.82); RED CELL DISTRIBUTION WIDTH 18.2 % (9.4-14.8)
[2020-03-06 17:55] LABS: ALANINE AMINOTRANSFERASE 33 U/L (12-78); ANION GAP 7 mmol/L (5-15); CALCIUM 7.9 mg/dL (8.5-10.1); CHLORIDE 104 mmol/L (98-107); CREATININE 0.89 mg/dL (0.7-1.3)
[2020-03-06 18:00] LABS: ALKALINE PHOSPHATASE 166 U/L (45-117); BILIRUBIN,TOTAL 1.6 mg/dL (0.2-1.0); TOTAL PROTEIN 6.3 g/dL (6.4-8.2)
[2020-03-06] MEDS ORDERED: ONDANSETRON 2MG/ML, 2ML IVPush ONE (18:00)
[2020-03-06] MEDS ORDERED: MORPHINE SULFATE 4 MG/ML, 1ML IVPush PRN (18:00)
--- NOTE | 2020-03-06 18:09 | NUR ---
PT TO CT.
[2020-03-06] MEDS ORDERED: ONDANSETRON 2MG/ML, 2ML ONE (18:22)
[2020-03-06] MEDS ORDERED: MORPHINE SULFATE 4 MG/ML, 1ML ONE (18:22)
--- NOTE | 2020-03-06 18:28 | NUR ---
PT RETURNED FROM CT. MEDICATED PER EMAR. PT RESTING ON GURNEY W/ CALL LIGHT IN REACH AND SIDE RAILS UPX2. CONNECTED TO ALL MONITORING. TACHYPNEIC, TACHYCARDIC, OTHER VS WDL. PLACED ON 2L NC FOR SAFETY. AWAITING RESULTS.
[2020-03-06] MEDS ORDERED: OMNIPAQUE 350 MG/ML, 100ML BOTTLE ONE (18:37)
--- NOTE | 2020-03-06 18:51 | NUR ---
REPORT GIVEN TO BAHMAN BATISTA. PT SLEEPING ON GUNREY W/ CALL LIGHT IN REACH. CONNECTED TO ALL MONITORING, VS UNCHANGED FROM PREVIOUS ASSESSMENT. PRADIP.
--- NOTE | 2020-03-06 18:54 | NUR ---
BEDSIDE REPORT FROM ANTONIA BATISTA. PT CARE TRANSFERRED AT THIS TIME. PT NO CHANGE IN EARLIER CONDITION. THIS RN DISCUSSED WITH ERP ANTIBIOTICS. PT RESTING ON GURNEY, EYES CLOSED, APPEARS COMFORTABLE. TACHYPNEIC AT 22. ON 4L NC, LAYING FLAT. LIGHTS DIMMED FOR COMFORT. PT ON ECG/BP/SPO2 MONITORING. WCFAUSTINO.
[2020-03-06] MEDS ORDERED: PIPERACILLIN/TAZO/PMX 3.375GM 50 ML ONE (18:56)
[2020-03-06] MEDS ORDERED: VANCOMYCIN PER PHARMACY MC ONE (19:00)
[2020-03-06] MEDS ORDERED: PIPERACILLIN/TAZO/PMX 3.375GM 50 ML IVPB ONE (19:00)
--- NOTE | 2020-03-06 19:17 | NUR ---
PT ASSISTED TO CHAIR SO RN COULD OBTAIN ACCURATE WEIGHT FOR PHARMACY. PT TRASNFERRED SMOOTHLY WITH MINIMAL ASSISTANCE FROM RN TO STAND. PT IS 129 KG. THIS RN SAT PT UP TO ABOUT A 45 DEGREE ANGLE AND PT IS NOW BREATHING BETTER. DMITRY, WCFAUSTINO.
[2020-03-06] MEDS ORDERED: VANCOMYCIN 2,500 MG in SODIUM CHLORIDE 0.9% 500 ML IV ONE (19:30)
--- NOTE | 2020-03-06 20:06 | NUR ---
PT MEDICATED PER SEP. RESTING IN [facility], NO CHANGE IN CONDITION. DMITRY, KATHLEEN. CONSULTED ERP REGARDING FLUIDS.
--- NOTE | 2020-03-06 20:54 | NUR ---
PT RESTING ON GURNEY, APPEARS COMFORTABLE, URINAL EMPTIED, EYES CLOSED, NAD, NO CHANGES IN CONDITION. WCTM. WAITING FOR DISPO
--- NOTE | 2020-03-06 22:13 | NUR ---
PT RESTING ON GURNEY, HOSPITAL BED REQUESTED. PT NAD, NO CHANGE IN CONDITION, TV PLAYING IN BACKGROUND. RN WOKE PT UP BRIEFLY TO GET HIM TO STRAIGHTEN ARM FOR IV MEDICATIONS. PT BACK TO SLEEP AFTER. WCTM. WAITING FOR ADMIT BED.
--- NOTE | 2020-03-06 22:59 | NUR ---
PT MOVED TO HOSPITAL BED, STATES HE IS MORE COMFORTABLE BUT FEELS LIKE BREATHING IS STILL DIFFICULT. PT NAD, O2 SAT ON 4L NC AT 95%. H AT BS FOR EVAL. WCFAUSTINO.
[2020-03-06] MEDS ORDERED: POLYETHYLENE GLYCOL 17 GM PACKET PO PRN (23:30)
[2020-03-06] MEDS ORDERED: ONDANSETRON ODT 4 MG PO PRN (23:30)
[2020-03-06] MEDS ORDERED: ACETAMINOPHEN 325 MG TABLET PO PRN (23:30)
[2020-03-06] MEDS ORDERED: VANCOMYCIN PER PHARMACY MC PRN (23:30)
[2020-03-06] MEDS ORDERED: BISACODYL 10 MG SUPP PR PRN (23:30)
[2020-03-06 23:57] LABS: TROPONIN I 0.065 ng/mL (0.000-0.045)
[2020-03-06] MEDS: SODIUM CHLORIDE 0.9% 1,000 ML IV SCH (23:58)
[2020-03-06] MEDS: INSULIN LISPRO 100 UNITS/ML, PEN SQ-INSULIN SCH (23:58)
--- NOTE | 2020-03-07 00:05 | NUR ---
PT RESTING ON HOSPITAL BED, NAD, NO CHANGE IN CONDITION, EYES CLOSED, WCTM. WAITING ON ADMIT BED.
--- NOTE | 2020-03-07 02:08 | NUR ---
PT RESTING ON HOSPITAL BED, NAD, NO CHANGE IN CONDITION. WCTM. WAITING FOR ADMIT BED.
--- NOTE | 2020-03-07 02:36 | NUR ---
PT RESTING ON HOSPITAL BED. WOKE UP AND BEGAN YELLING "HELP, I NEED HELP!!", RN TO BEDSIDE AND PT STATES "I AM COLD". RN RECOVERED PT WITH BLANKETS. PT DENIES ADDITIONAL NEEDS AT THIS TIME. URINAL EMPTIED. WCTM. WAITING FOR ADMIT BED.
--- NOTE | 2020-03-07 03:31 | NUR ---
pt resting on hospital bed, appears comfortable, NAD, eyes closed. WCTM. waiting for admit bed.
--- NOTE | 2020-03-07 04:23 | NUR ---
PT RESTING ON HOSPITAL BED, NO CHANGE IN CONDITION, EYES CLOSED, APPEARS COMFORTABLE, EVEN AND BILATERAL RESPIRATIONS. NAD, WCTM. WAITING FOR ADMIT BED
[2020-03-07] MEDS ORDERED: PHARMACOKINETIC MONITORING MC PRN (04:30)
[2020-03-07] MEDS ORDERED: ASPIRIN 81 MG TABLET CHEW ONE (04:56)
[2020-03-07] MEDS ORDERED: ACETAMINOPHEN 325 MG TABLET ONE (04:56)
[2020-03-07] MEDS: ASPIRIN 81 MG TABLET CHEW PO SCH (05:02)
--- NOTE | 2020-03-07 05:05 | NUR ---
PT MEDICATED PER MAR FOR PAIN. LAB AT BS. GIVEN ICE CHIPS PER REQUEST. NAD. WCTM. WAITING FOR ADMIT BED.
[2020-03-07 05:16] LABS: BASOPHILS # (AUTO) 0.01 x10^3/uL (0-0.1); BASOPHILS % (AUTO) 0 % (0-1); EOSINOPHILS # (AUTO) 0.07 x10^3/uL (0-0.4); EOSINOPHILS % (AUTO) 1 % (1-7); LYMPHOCYTES # (AUTO) 0.49 x10^3/uL (1-3.4); LYMPHOCYTES % (AUTO) 8 % (22-44); MD NO; MEAN CORPUSCULAR HEMOGLOBIN 28.7 pg (27.5-34.5); MEAN CORPUSCULAR HGB CONC 32.1 g/dL (33.2-36.2); MEAN CORPUSCULAR VOLUME 89.6 fL (81-97); MONOCYTES # (AUTO) 0.42 x10^3/uL (0.2-0.8); MONOCYTES % (AUTO) 7 % (2-9); NEUTROPHILS # (AUTO) 5.29 x10^3/uL (1.8-6.8); NEUTROPHILS % (AUTO) 84 % (42-75); PLATELET COUNT 160 x10^3/uL (130-400); RED BLOOD COUNT 4.67 x10^6/uL (4.38-5.82); RED CELL DISTRIBUTION WIDTH 18.1 % (9.4-14.8)
[2020-03-07 05:31] LABS: ANION GAP 7 mmol/L (5-15); CALCIUM 8.3 mg/dL (8.5-10.1); CHLORIDE 103 mmol/L (98-107)
[2020-03-07 05:38] LABS: CREATININE 0.89 mg/dL (0.7-1.3); TROPONIN I 0.055 ng/mL (0.000-0.045)
[2020-03-07] MEDS: INSULIN LISPRO 100 UNITS/ML, PEN SQ-INSULIN SCH ×4 (06:16→21:07)
--- NOTE | 2020-03-07 06:17 | NUR ---
PT MOVED ROOMS, TOLERATED TRANSITION WELL, FINGER STICK 181, PT MEDICATED PER SEP. NAD, WCTM, WAITING FOR TELE BED.
--- NOTE | 2020-03-07 06:33 | NUR ---
PT CONDITION UNCHANGED, NAD, WCTM. WAITING FOR ADMIT BED.
--- NOTE | 2020-03-07 07:02 | NUR ---
report to yolanda smith, pt care transferred at this time.
[2020-03-07] MEDS ORDERED: SENNA/DOCUSATE TABLET ONE (08:44)
[2020-03-07] MEDS: SENNA/DOCUSATE TABLET PO SCH (08:48)
[2020-03-07] MEDS: SODIUM CHLORIDE 0.9% 1,000 ML IV SCH (09:11)
--- NOTE | 2020-03-07 11:41 | NUR ---
REPORT RECIEVED FROM AAKASH BATISTA
--- NOTE | 2020-03-07 12:04 | NUR ---
Report called to Jenelle BATISTA. All questions and concerns addressed and answered
[2020-03-07 13:10] VITALS: BP 123/88
[2020-03-07 19:11] VITALS: BP 113/90
[2020-03-07] MEDS ORDERED: VANCOMYCIN 2,000 MG in SODIUM CHLORIDE 0.9% 500 ML IV SCH (20:00)
[2020-03-07] MEDS: APIXABAN 5 MG TABLET PO SCH (20:41)
[2020-03-08 01:24] VITALS: BP 115/71
[2020-03-08] MEDS: ASPIRIN 81 MG TABLET CHEW PO SCH (06:24)
[2020-03-08 07:27] VITALS: BP 130/97
[2020-03-08] MEDS: APIXABAN 5 MG TABLET PO SCH (08:27)
[2020-03-08] MEDS: SENNA/DOCUSATE TABLET PO SCH (08:27)
[2020-03-08] MEDS: INSULIN LISPRO 100 UNITS/ML, PEN SQ-INSULIN SCH ×3 (08:28→16:21)
[2020-03-08] MEDS ORDERED: APIX5TAB PO (09:45)
[2020-03-08] MEDS ORDERED: CARV6.25 PO (09:46)
[2020-03-08] MEDS ORDERED: ATOR20TA86 PO (09:47)
[2020-03-08] MEDS ORDERED: LISI-167 PO (09:50)
[2020-03-08] MEDS ORDERED: SPIR25TA PO (09:51)
[2020-03-08 12:16] VITALS: BP 130/95
[2020-03-08] MEDS ORDERED: FUROSEMIDE 40 MG TABLET PO SCH (14:00)
== END 2020-03-08 17:05 | disposition home or self-care (01) | DRG 280 ==
LOC: ED 21:42 → EDIP 22:27 → 5SO 03-07 12:43 → 3N 03-07 18:04
PROVIDERS: ADMIT Family Medicine; ATTEND Hospitalist
DX: I21.4 Non-ST elevation (NSTEMI) myocardial infarction (principal); J96.01 Acute respiratory failure with hypoxia; E87.1 Hypo-osmolality and hyponatremia; E87.2 Acidosis; I50.22 Chronic systolic (congestive) heart failure; E11.65 Type 2 diabetes mellitus with hyperglycemia; E66.01 Morbid (severe) obesity due to excess calories; E78.5 Hyperlipidemia, unspecified; F12.90 Cannabis use, unspecified, uncomplicated; I11.0 Hypertensive heart disease with heart failure; I25.10 Atherosclerotic heart disease of native coronary artery without angina pectoris; I27.20 Pulmonary hypertension, unspecified; I87.2 Venous insufficiency (chronic) (peripheral); J44.9 Chronic obstructive pulmonary disease, unspecified; M06.9 Rheumatoid arthritis, unspecified; Z66 Do not resuscitate; N40.0 Benign prostatic hyperplasia without lower urinary tract symptoms; Z59.0 Homelessness; Z79.01 Long term (current) use of anticoagulants; Z79.4 Long term (current) use of insulin; Z80.3 Family history of malignant neoplasm of breast; Z82.49 Family history of ischemic heart disease and other diseases of the circulatory system; Z68.35 Body mass index [BMI] 35.0-35.9, adult; Z82.5 Family history of asthma and other chronic lower respiratory diseases; Z87.891 Personal history of nicotine dependence; Z91.14 Patient's other noncompliance with medication regimen; Z91.19 Patient's noncompliance with other medical treatment and regimen; Z82.61 Family history of arthritis
CPT/HCPCS: 36415; 36600; 71275; 74177; 80048; 80053; 82378; 82803; 82962; 83036; 83605; 83690; 83880; 84145; 84484; 85025; 87040; 93005; 96365; 96366; 96367; 96375; 99285; G0378; J2405; J2543; J3370; Q9967; J1815; J2270; J7030; J7040

== ENCOUNTER 2020-03-10 00:56 | Emergency (ER) | payer MEDICARE ==
[~2020-03-10] VITALS: Ht 180.3 cm; Wt 128.0 kg
[~2020-03-10 00:56] MED LIST changes: +ATOR20TA86 PO; +CARV6.25 PO; +LISI-167 PO
[2020-03-10 01:53] LABS: BASOPHILS # (AUTO) 0.03 x10^3/uL (0-0.1); BASOPHILS % (AUTO) 1 % (0-1); EOSINOPHILS # (AUTO) 0.18 x10^3/uL (0-0.4); EOSINOPHILS % (AUTO) 3 % (1-7); LYMPHOCYTES # (AUTO) 1.22 x10^3/uL (1-3.4); LYMPHOCYTES % (AUTO) 18 % (22-44); MD NO; MEAN CORPUSCULAR HEMOGLOBIN 28.2 pg (27.5-34.5); MEAN CORPUSCULAR HGB CONC 31.5 g/dL (33.2-36.2); MEAN CORPUSCULAR VOLUME 89.5 fL (81-97); MEAN PLATELET VOLUME 9.9 fL (7.4-10.4); MONOCYTES # (AUTO) 0.93 x10^3/uL (0.2-0.8); MONOCYTES % (AUTO) 13 % (2-9); NEUTROPHILS # (AUTO) 4.61 x10^3/uL (1.8-6.8); NEUTROPHILS % (AUTO) 66 % (42-75); PLATELET COUNT 156 x10^3/uL (130-400); RED BLOOD COUNT 4.66 x10^6/uL (4.38-5.82); RED CELL DISTRIBUTION WIDTH 17.7 % (9.4-14.8)
[2020-03-10 02:06] LABS: ALBUMIN 2.9 g/dL (3.4-5.0); ANION GAP 8 mmol/L (5-15); CHLORIDE 104 mmol/L (98-107); CREATININE 0.91 mg/dL (0.7-1.3)
[2020-03-10 02:10] LABS: TROPONIN I 0.117 ng/mL (0.000-0.045)
[2020-03-10 02:34] VITALS: BP 141/106
== END 2020-03-10 03:37 | disposition home or self-care (01) ==
LOC: ED 03:00
DX: R07.89 Other chest pain (principal); R06.02 Shortness of breath; R00.0 Tachycardia, unspecified; E66.09 Other obesity due to excess calories; Z72.9 Problem related to lifestyle, unspecified; J44.9 Chronic obstructive pulmonary disease, unspecified; I11.0 Hypertensive heart disease with heart failure; I50.9 Heart failure, unspecified; E11.9 Type 2 diabetes mellitus without complications; M19.90 Unspecified osteoarthritis, unspecified site; Z68.39 Body mass index [BMI] 39.0-39.9, adult
CPT/HCPCS: 36415; 71045; 80048; 82040; 84484; 85025; 93005; 99285

== ENCOUNTER 2020-03-13 14:42 | Inpatient (IN) | payer MEDICARE ==
[~2020-03-13] VITALS: Ht 180.3 cm; Wt 123.8 kg
[2020-03-13] MEDS ORDERED: GABA600T7 PO (14:59)
[2020-03-13] MEDS ORDERED: INSU100I17 SQ (15:00)
[2020-03-13] MEDS ORDERED: ALBUTEROL/IPRATROPIUM 2.5MG/0.5MG, 3 ML NPPB ONE (15:00)
--- NOTE | 2020-03-13 15:00 | NUR ---
THIS IS A 64 YO MALE BIB EMS W/ C/O SOB WORSE W/ EXERTION. DC FROM INPATIENT YESTERDAY FROM HOSPITALIZATION FOR CELLULITIS TX. PATIENT PICKED UP ALL PRESCRIPTIONS TODAY, BUT HAS NOT STARTED TAKING ANY, [facility]. RESPIRATIONS EVEN AND SLIGHTLY LABORED, PATIENT SPEAKING IN 4-5 WORD SENTENCES. LUNG SOUNDS HAVE SLIGHT CRACKLES NOTED. ALL MONITORING IN PLACE, AFIB ON MONITOR. VSS, NADN. CALL LIGHT IN REACH. ERP IN ROOM FOR EUGENIO
[2020-03-13] MEDS ORDERED: ALBUTEROL/IPRATROPIUM 2.5MG/0.5MG, 3 ML ONE (15:01)
--- NOTE | 2020-03-13 15:07 | NUR ---
BREATHING TX ADMINISTERED
--- NOTE | 2020-03-13 15:10 | NUR ---
PATIENT STATES IMPROVEMENT IN BREATHING, LUNG SOUNDS HAVE SLIGHTLY IMPROVED. WAITING FOR CXR.
--- NOTE | 2020-03-13 16:08 | NUR ---
ATTEMPTED TO AMBULATE PATIENT WITH PULSE OX, SPO2 DROPPED TO 86-88% WHILE AMBULATING, AND RR INCREASED TO 36. RR AT REST 20-24
[2020-03-13 17:12] LABS: BASOPHILS # (AUTO) 0.04 x10^3/uL (0-0.1); BASOPHILS % (AUTO) 1 % (0-1); EOSINOPHILS # (AUTO) 0.21 x10^3/uL (0-0.4); EOSINOPHILS % (AUTO) 2 % (1-7); LYMPHOCYTES # (AUTO) 1.46 x10^3/uL (1-3.4); LYMPHOCYTES % (AUTO) 17 % (22-44); MD NO; MEAN CORPUSCULAR HGB CONC 31.8 g/dL (33.2-36.2); MEAN PLATELET VOLUME 10.1 fL (7.4-10.4); MONOCYTES # (AUTO) 0.88 x10^3/uL (0.2-0.8); MONOCYTES % (AUTO) 10 % (2-9); NEUTROPHILS # (AUTO) 6.02 x10^3/uL (1.8-6.8); NEUTROPHILS % (AUTO) 70 % (42-75); PLATELET COUNT 214 x10^3/uL (130-400); RED BLOOD COUNT 4.75 x10^6/uL (4.38-5.82); RED CELL DISTRIBUTION WIDTH 18.3 % (9.4-14.8)
[2020-03-13 17:15] LABS: ALBUMIN 3.1 g/dL (3.4-5.0); ANION GAP 6 mmol/L (5-15); CALCIUM 8.6 mg/dL (8.5-10.1); CHLORIDE 106 mmol/L (98-107)
[2020-03-13 17:21] LABS: CREATININE 0.93 mg/dL (0.7-1.3); TROPONIN I 0.051 ng/mL (0.000-0.045)
--- NOTE | 2020-03-13 17:27 | NUR ---
PATIENT RESTING ON GURNEY, RESPIRATIONS EVEN AND UNLABORED. PRADIP MUNGUIA. CALL LIGHT IN REACH. AWAITING LAB RESULTS
--- NOTE | 2020-03-13 17:36 | NUR ---
PIV PLACED. PATIENT GIVEN ADA FOOD TRAY
[2020-03-13] MEDS ORDERED: SODIUM CHLORIDE FLUSH 10ML SYR IVF PRN (18:00)
[2020-03-13] MEDS ORDERED: ONDANSETRON ODT 4 MG PO PRN (18:30)
[2020-03-13] MEDS ORDERED: BISACODYL 10 MG SUPP PR PRN (18:30)
[2020-03-13] MEDS ORDERED: ACETAMINOPHEN 325 MG TABLET PO PRN (18:30)
[2020-03-13] MEDS ORDERED: POLYETHYLENE GLYCOL 17 GM PACKET PO PRN (18:30)
--- NOTE | 2020-03-13 18:52 | NUR ---
Pt bedside report From rae rn. This rn to assume care of pt. Pt moved to hospital bed via prior rn. No immediate needs. Awaiting hospitalist orders.
[2020-03-13] MEDS ORDERED: APIXABAN 5 MG TABLET ONE (19:00)
--- NOTE | 2020-03-13 19:40 | NUR ---
Pt sleeping comfortably on hospital bed.
[2020-03-13] MEDS: APIXABAN 5 MG TABLET PO SCH (20:10)
[2020-03-13] MEDS: CARVEDILOL 6.25 MG TABLET PO SCH (20:11)
[2020-03-13] MEDS: SPIRONOLACTONE 25 MG TABLET PO SCH (20:11)
[2020-03-13] MEDS: INSULIN LISPRO 100 UNITS/ML, PEN SQ-INSULIN SCH (20:12)
--- NOTE | 2020-03-13 20:30 | NUR ---
Given pudding upon request, low sugar pudding provided. No other immediate needs. Medicated per sep.
--- NOTE | 2020-03-13 22:41 | NUR ---
Pt given crackers for hunger. VSS. No other immediate needs. WCTM.
--- NOTE | 2020-03-13 22:49 | NUR ---
Pt report to Fanny smith.
--- NOTE | 2020-03-14 00:49 | NUR ---
THIS NURSE WALKED INTO PT ROOM TO RESPOND TO CALL LIGHT. PT WAS SCREAMING AND THREW CALL LIGHT TOWARDS DOOR. THIS NURSE INFORMED PT THAT THIS IS INAPPROPRIATE BEHAVIOR, AND PT STATES "I DON'T GIVE A FUCK, THIS PLACE IS BULLSHIT." THIS NURSE ASKED PT ORIGINAL REASON FOR PRESSING CALL LIGHT. PT CUSSING AT NURSE, STATING HE "WANTS A DAMN SLEEPING PILL." PT REMINDED THAT LANGUAGE IS INAPPROPRIATE. WILL MEDICATE PER EMAR.
[2020-03-14 06:01] LABS: TROPONIN I 0.051 ng/mL (0.000-0.045)
--- NOTE | 2020-03-14 06:54 | NUR ---
REPORT RECIEVED FOR TRANSFER OF PATIENT CARE FROM LYNNE STANLEY AT PATIENT BEDSIDE.
[2020-03-14] MEDS: SODIUM CHLORIDE FLUSH 10ML SYR IVF SCH ×3 (07:34→20:37)
[2020-03-14] MEDS ORDERED: DOCUSATE 100 MG CAPSULE ONE (07:41)
[2020-03-14] MEDS ORDERED: LISINOPRIL 10 MG TABLET ONE (07:44)
[2020-03-14] MEDS ORDERED: ATORVASTATIN 40 MG TABLET ONE (07:44)
[2020-03-14] MEDS ORDERED: APIXABAN 5 MG TABLET ONE (07:44)
[2020-03-14] MEDS ORDERED: CARVEDILOL 3.125 MG TABLET ONE (07:44)
[2020-03-14] MEDS: INSULIN LISPRO 100 UNITS/ML, PEN SQ-INSULIN SCH ×4 (08:11→20:37)
[2020-03-14] MEDS: LISINOPRIL 10 MG TABLET PO SCH (08:11)
[2020-03-14] MEDS: APIXABAN 5 MG TABLET PO SCH ×2 (08:12→20:36)
[2020-03-14] MEDS: ATORVASTATIN 40 MG TABLET PO SCH (08:12)
[2020-03-14] MEDS: CARVEDILOL 6.25 MG TABLET PO SCH ×2 (08:12→20:36)
--- NOTE | 2020-03-14 08:18 | NUR ---
BREAKFAST TRAY GIVEN TO PATIENT, MEDICATED PER eMAR, CONNECTED TO TRACK PATROL, CALL LIGHT WITHIN REACH, NO FURTHER NEEDS AT THIS TIME.
[2020-03-14] MEDS: SPIRONOLACTONE 25 MG TABLET PO SCH ×2 (08:46→20:36)
[2020-03-14] MEDS: GABAPENTIN 100 MG CAPSULE PO SCH (08:46)
[2020-03-14] MEDS: SENNA/DOCUSATE TABLET PO SCH (08:46)
--- NOTE | 2020-03-14 09:18 | NUR ---
PATIENT LYING IN GURNEY, NO APPARENT SIGNS OF DISTRESS, CONNECTED TO BELT MOLDER, CALL LIGHT WITHIN REACH, NO FURTHER NEEDS AT THIS TIME.
--- NOTE | 2020-03-14 11:03 | NUR ---
PATIENT SITTING UP, POC BLOOD SUGAR 159, 2 UNITS OF INSULIN ADMINSTERED PER eMAR. CALL LIGHT WITHIN REACH, NO FURTHER NEEDS AT THIS TIME.
--- NOTE | 2020-03-14 11:56 | NUR ---
URINAL EMPTIED, PATIENT LYING IN GURNEY WATCHING TV, CALL LIGHT WITHIN REACH, NO FURTHER NEEDS AT THIS TIME.
--- NOTE | 2020-03-14 12:06 | NUR ---
LUNCH TRAY PROVIDED TO PATIENT.
--- NOTE | 2020-03-14 13:09 | NUR ---
SBAR GIVEN TO LYNNE RUSHING ON MEDICAL TELEMETRY.
--- NOTE | 2020-03-14 13:17 | NUR ---
PATIENT TRANSFERRED TO FLOOR VIA HOSPITAL BED WITH MICROFILM PROCESSOR.
[2020-03-14 13:34] VITALS: BP 109/76
[2020-03-14] MEDS ORDERED: GABA-826 PO (13:38)
[2020-03-14 18:52] VITALS: BP 117/88
[2020-03-15 00:42] VITALS: BP 107/71
[2020-03-15 06:04] LABS: BASOPHILS # (AUTO) 0.01 x10^3/uL (0-0.1); BASOPHILS % (AUTO) 0 % (0-1); EOSINOPHILS # (AUTO) 0.21 x10^3/uL (0-0.4); EOSINOPHILS % (AUTO) 2 % (1-7); LYMPHOCYTES # (AUTO) 1.54 x10^3/uL (1-3.4); LYMPHOCYTES % (AUTO) 17 % (22-44); MD NO; MEAN CORPUSCULAR HEMOGLOBIN 28.1 pg (27.5-34.5); MEAN CORPUSCULAR VOLUME 87.8 fL (81-97); MEAN PLATELET VOLUME 10.9 fL (7.4-10.4); MONOCYTES # (AUTO) 0.96 x10^3/uL (0.2-0.8); MONOCYTES % (AUTO) 11 % (2-9); NEUTROPHILS # (AUTO) 6.16 x10^3/uL (1.8-6.8); NEUTROPHILS % (AUTO) 69 % (42-75); PLATELET COUNT 192 x10^3/uL (130-400); RED BLOOD COUNT 4.75 x10^6/uL (4.38-5.82); RED CELL DISTRIBUTION WIDTH 18.3 % (9.4-14.8)
[2020-03-15 06:17] LABS: CHLORIDE 105 mmol/L (98-107)
[2020-03-15 06:23] LABS: ALBUMIN 2.9 g/dL (3.4-5.0); ANION GAP 8 mmol/L (5-15); CALCIUM 8.8 mg/dL (8.5-10.1); CREATININE 0.86 mg/dL (0.7-1.3)
[2020-03-15 06:59] VITALS: BP 119/86
[2020-03-15 07:12] VITALS: BP 126/89
[2020-03-15] MEDS: ATORVASTATIN 40 MG TABLET PO SCH (07:39)
[2020-03-15] MEDS: GABAPENTIN 100 MG CAPSULE PO SCH (07:39)
[2020-03-15] MEDS: APIXABAN 5 MG TABLET PO SCH ×2 (07:39→20:47)
[2020-03-15] MEDS: CARVEDILOL 6.25 MG TABLET PO SCH ×2 (07:39→20:47)
[2020-03-15] MEDS: SENNA/DOCUSATE TABLET PO SCH (07:39)
[2020-03-15] MEDS: SPIRONOLACTONE 25 MG TABLET PO SCH ×2 (07:40→20:47)
[2020-03-15] MEDS: SODIUM CHLORIDE FLUSH 10ML SYR IVF SCH ×2 (07:40→20:48)
[2020-03-15] MEDS: LISINOPRIL 10 MG TABLET PO SCH (07:40)
[2020-03-15] MEDS: INSULIN LISPRO 100 UNITS/ML, PEN SQ-INSULIN SCH ×4 (07:41→20:47)
[2020-03-15] MEDS ORDERED: MAGNESIUM SULFATE PMX 2GM/50ML 50 ML IV ONE (12:00)
[2020-03-15 13:12] VITALS: BP 114/80
[2020-03-15 19:36] VITALS: BP 133/89
[2020-03-15] MEDS: CALCIUM CARBONATE 500 MG TAB.CHEW PO PRN (22:24)
[2020-03-15 22:49] VITALS: BP 127/86
[2020-03-15] MEDS ORDERED: FUROSEMIDE 20 MG/2 ML IV ONE (23:00)
[2020-03-16 00:47] VITALS: BP 129/88
[2020-03-16 06:54] LABS: BASOPHILS # (AUTO) 0.02 x10^3/uL (0-0.1); BASOPHILS % (AUTO) 0 % (0-1); EOSINOPHILS # (AUTO) 0.15 x10^3/uL (0-0.4); EOSINOPHILS % (AUTO) 1 % (1-7); LYMPHOCYTES # (AUTO) 1.85 x10^3/uL (1-3.4); LYMPHOCYTES % (AUTO) 18 % (22-44); MD NO; MEAN CORPUSCULAR HEMOGLOBIN 28.2 pg (27.5-34.5); MEAN CORPUSCULAR HGB CONC 32.1 g/dL (33.2-36.2); MEAN PLATELET VOLUME 10.4 fL (7.4-10.4); MONOCYTES # (AUTO) 0.92 x10^3/uL (0.2-0.8); MONOCYTES % (AUTO) 9 % (2-9); NEUTROPHILS # (AUTO) 7.36 x10^3/uL (1.8-6.8); NEUTROPHILS % (AUTO) 72 % (42-75); PLATELET COUNT 209 x10^3/uL (130-400); RED BLOOD COUNT 4.91 x10^6/uL (4.38-5.82); RED CELL DISTRIBUTION WIDTH 17.5 % (9.4-14.8)
[2020-03-16 07:05] LABS: ALBUMIN 3.1 g/dL (3.4-5.0); ANION GAP 10 mmol/L (5-15); CALCIUM 8.7 mg/dL (8.5-10.1); CHLORIDE 106 mmol/L (98-107)
[2020-03-16 07:06] LABS: CREATININE 0.87 mg/dL (0.7-1.3)
[2020-03-16 07:13] VITALS: BP 137/98
[2020-03-16] MEDS: SENNA/DOCUSATE TABLET PO SCH (09:00)
[2020-03-16] MEDS: SODIUM CHLORIDE FLUSH 10ML SYR IVF SCH ×2 (09:00→20:24)
[2020-03-16] MEDS: LISINOPRIL 10 MG TABLET PO SCH (10:00)
[2020-03-16] MEDS ORDERED: AZITHROMYCIN 500 MG in SODIUM CHLORIDE 0.9% 250 ML IV SCH (10:00)
[2020-03-16] MEDS: ATORVASTATIN 40 MG TABLET PO SCH (10:00)
[2020-03-16] MEDS: GABAPENTIN 100 MG CAPSULE PO SCH (10:00)
[2020-03-16] MEDS: INSULIN LISPRO 100 UNITS/ML, PEN SQ-INSULIN SCH ×4 (10:00→19:59)
[2020-03-16] MEDS: CARVEDILOL 6.25 MG TABLET PO SCH ×2 (10:01→20:00)
[2020-03-16] MEDS: SPIRONOLACTONE 25 MG TABLET PO SCH ×2 (10:01→19:59)
[2020-03-16] MEDS: APIXABAN 5 MG TABLET PO SCH ×2 (10:01→20:00)
[2020-03-16] MEDS ORDERED: CEFTRIAXONE PMX 2GM/50ML 50 ML IV SCH (11:00)
[2020-03-16 12:34] VITALS: BP 103/72
[2020-03-16 19:53] VITALS: BP 136/91
[2020-03-16] MEDS: CEFDINIR 300 MG CAPSULE PO SCH (19:59)
[2020-03-17 01:08] VITALS: BP 117/88
[2020-03-17] MEDS: CALCIUM CARBONATE 500 MG TAB.CHEW PO PRN (04:13)
[2020-03-17 07:42] VITALS: BP 139/96
[2020-03-17] MEDS: ATORVASTATIN 40 MG TABLET PO SCH (08:49)
[2020-03-17] MEDS: CEFDINIR 300 MG CAPSULE PO SCH (08:49)
[2020-03-17] MEDS: SPIRONOLACTONE 25 MG TABLET PO SCH (08:49)
[2020-03-17] MEDS: LISINOPRIL 10 MG TABLET PO SCH (08:49)
[2020-03-17] MEDS: INSULIN LISPRO 100 UNITS/ML, PEN SQ-INSULIN SCH ×2 (08:49→11:00)
[2020-03-17] MEDS: CARVEDILOL 6.25 MG TABLET PO SCH (08:50)
[2020-03-17] MEDS: APIXABAN 5 MG TABLET PO SCH (08:50)
[2020-03-17] MEDS: GABAPENTIN 100 MG CAPSULE PO SCH (08:50)
[2020-03-17] MEDS: SENNA/DOCUSATE TABLET PO SCH (08:50)
[2020-03-17] MEDS: SODIUM CHLORIDE FLUSH 10ML SYR IVF SCH (08:50)
[2020-03-17] MEDS ORDERED: AZITHROMYCIN 250 MG TABLET PO SCH (09:00)
[2020-03-17] MEDS ORDERED: CEFD300C37 PO (10:05)
[2020-03-17] MEDS ORDERED: AZIT250T89 PO (10:05)
== END 2020-03-17 12:56 | disposition home or self-care (01) | DRG 189 ==
LOC: ED 16:13 → EDIP 17:51 → 4WST 03-14 13:25 → DCLOUNGE 03-17 12:48
PROVIDERS: ADMIT Family Medicine; ATTEND Family Medicine
DX: J96.01 Acute respiratory failure with hypoxia (principal); J18.9 Pneumonia, unspecified organism; I50.22 Chronic systolic (congestive) heart failure; J98.11 Atelectasis; I11.0 Hypertensive heart disease with heart failure; E66.01 Morbid (severe) obesity due to excess calories; E11.9 Type 2 diabetes mellitus without complications; I27.20 Pulmonary hypertension, unspecified; J44.9 Chronic obstructive pulmonary disease, unspecified; M06.9 Rheumatoid arthritis, unspecified; F12.90 Cannabis use, unspecified, uncomplicated; I25.10 Atherosclerotic heart disease of native coronary artery without angina pectoris; M19.90 Unspecified osteoarthritis, unspecified site; N40.0 Benign prostatic hyperplasia without lower urinary tract symptoms; Z80.3 Family history of malignant neoplasm of breast; Z82.5 Family history of asthma and other chronic lower respiratory diseases; Z79.4 Long term (current) use of insulin; Z59.0 Homelessness; Z68.38 Body mass index [BMI] 38.0-38.9, adult; Z87.891 Personal history of nicotine dependence; Z91.14 Patient's other noncompliance with medication regimen; Z90.49 Acquired absence of other specified parts of digestive tract; Z95.0 Presence of cardiac pacemaker
CPT/HCPCS: 36415; 71045; 80048; 80069; 82040; 82962; 83735; 84484; 85025; 93005; G0378; J0456; J0696; J1815; J1940; J3475; J7050; Q0177

== ENCOUNTER 2020-04-28 16:51 | Emergency (ER) | payer MEDICARE ==
[~2020-04-28] VITALS: Ht 180.3 cm; Wt 122.0 kg
[~2020-04-28 16:51] MED LIST changes: +AZIT250T89 PO; +CEFD300C37 PO; +GABA600T7 PO; +INSU100I17 SQ
[2020-04-28] MEDS ORDERED: SODIUM CHLORIDE FLUSH 10ML SYR IVF ONE (17:30)
[2020-04-28 17:47] LABS: BASOPHILS % (AUTO) 1 % (0-1); EOSINOPHILS % (AUTO) 2 % (1-7); LYMPHOCYTES % (AUTO) 14 % (22-44); MEAN CORPUSCULAR HEMOGLOBIN 28.5 pg (27.5-34.5); MEAN CORPUSCULAR HGB CONC 31.8 g/dL (33.2-36.2); MEAN PLATELET VOLUME 10.2 fL (7.4-10.4); MONOCYTES % (AUTO) 11 % (2-9); NEUTROPHILS % (AUTO) 73 % (42-75); PLATELET COUNT 145 x10^3/uL (130-400); RED CELL DISTRIBUTION WIDTH 21.6 % (9.4-14.8)
[2020-04-28 17:59] LABS: ALANINE AMINOTRANSFERASE 25 U/L (12-78); ALBUMIN 3.1 g/dL (3.4-5.0); ANION GAP 6 mmol/L (5-15); CALCIUM 8.8 mg/dL (8.5-10.1); CHLORIDE 108 mmol/L (98-107)
[2020-04-28 18:04] LABS: ALKALINE PHOSPHATASE 138 U/L (45-117); BILIRUBIN,TOTAL 0.8 mg/dL (0.2-1.0); TOTAL PROTEIN 6.3 g/dL (6.4-8.2)
[2020-04-28 18:13] LABS: INTERNATIONAL NORMALIZED RATIO 1.23 (0.93-1.1); PROTHROMBIN TIME 12.7 Seconds (9.6-11.5)
--- NOTE | 2020-04-28 18:23 | NUR ---
pt sleeping on and off cont to monitor
[2020-04-28 18:25] LABS: MD MORPH REVIEW ONLY
[2020-04-28 18:26] LABS: ANISOCYTOSIS 1+
[2020-04-28 18:27] LABS: <PLATELET ESTIMATE> ADEQUATE; <PLT MORPHOLOGY> NORMAL PLT MORPH; OVALOCYTES 1+
--- NOTE | 2020-04-28 18:55 | NUR ---
pt resting in bed, report recieved from sonia smith. no needs at this time
--- NOTE | 2020-04-28 19:53 | NUR ---
PT. PROVIDED WITH CRACKERS/MILK PER REQUEST FOR FOOD AND AFTER OK FROM DR. SONI. AWAITING REPEAT TROP FOR DISPO AT THIS TIME. PT. DENIES ANY OTHER NEEDS. ALL SAFETY MEASURES MAINTAINED. CALL LIGHT IN REACH.
--- NOTE | 2020-04-28 20:26 | NUR ---
PRECEPTOR RN DRAWING LABS AT THIS TIME.
--- NOTE | 2020-04-28 20:50 | NUR ---
UNABLE TO GET BLOOD DRAW. LAB WAS ABLE TO COMPLETE BLOOD DRAW
[2020-04-28 21:07] LABS: TROPONIN I 0.049 ng/mL (0.000-0.045)
[2020-04-28 21:29] VITALS: BP 133/97
--- NOTE | 2020-04-28 21:42 | NUR ---
PT ABLE TO MAINTAIN 02 SATURATIONS ABOVE 95% ON ROOM AIR AFTER TAKING OFF 02 FOR 10 MINUTES
== END 2020-04-28 22:06 | disposition home or self-care (01) ==
LOC: ED 17:47
DX: R07.89 Other chest pain (principal); R06.02 Shortness of breath; R94.31 Abnormal electrocardiogram [ECG] [EKG]; I11.0 Hypertensive heart disease with heart failure; I50.9 Heart failure, unspecified; E78.5 Hyperlipidemia, unspecified; J44.9 Chronic obstructive pulmonary disease, unspecified; E11.65 Type 2 diabetes mellitus with hyperglycemia; M19.90 Unspecified osteoarthritis, unspecified site; Z95.0 Presence of cardiac pacemaker; Z90.89 Acquired absence of other organs; Z87.891 Personal history of nicotine dependence; Z91.14 Patient's other noncompliance with medication regimen
CPT/HCPCS: 36415; 71045; 80053; 83880; 84484; 85025; 85610; 85730; 93005; 99285

== ENCOUNTER 2020-05-02 12:09 | Emergency (ER) | payer MEDICARE ==
[~2020-05-02] VITALS: Ht 180.3 cm; Wt 114.7 kg
[2020-05-02] MEDS ORDERED: ASPIRIN 81 MG TABLET CHEW PO ONE (12:30)
[2020-05-02] MEDS ORDERED: FURO-93 PO (12:34)
[2020-05-02 12:44] LABS: BASOPHILS % (AUTO) 1 % (0-1); EOSINOPHILS % (AUTO) 1 % (1-7); LYMPHOCYTES % (AUTO) 13 % (22-44); MEAN CORPUSCULAR HEMOGLOBIN 28.5 pg (27.5-34.5); MEAN CORPUSCULAR HGB CONC 31.8 g/dL (33.2-36.2); MEAN PLATELET VOLUME 10.3 fL (7.4-10.4); MONOCYTES % (AUTO) 11 % (2-9); NEUTROPHILS % (AUTO) 75 % (42-75); PLATELET COUNT 162 x10^3/uL (130-400); RED BLOOD COUNT 4.68 x10^6/uL (4.38-5.82); RED CELL DISTRIBUTION WIDTH 21.5 % (9.4-14.8)
[2020-05-02] MEDS ORDERED: ASPIRIN 81 MG TABLET CHEW ONE (12:46)
--- NOTE | 2020-05-02 12:50 | NUR ---
PT MEDICATED ORDERED. WAITING FOR RESULTS.
[2020-05-02 12:58] LABS: ALBUMIN 3.2 g/dL (3.4-5.0); ANION GAP 6 mmol/L (5-15); CALCIUM 8.5 mg/dL (8.5-10.1); CHLORIDE 105 mmol/L (98-107)
[2020-05-02 13:03] LABS: MD NO
[2020-05-02 13:04] LABS: ALANINE AMINOTRANSFERASE 33 U/L (12-78); ALKALINE PHOSPHATASE 120 U/L (45-117); BILIRUBIN,TOTAL 1.3 mg/dL (0.2-1.0); CREATININE 1.03 mg/dL (0.7-1.3); TOTAL PROTEIN 6.3 g/dL (6.4-8.2); TROPONIN I 0.041 ng/mL (0.000-0.045)
--- NOTE | 2020-05-02 13:10 | NUR ---
CHART UP FOR MD RECHECK. PT AWARE.
[2020-05-02] MEDS ORDERED: FUROSEMIDE 20 MG TABLET PO ONE (14:00)
[2020-05-02] MEDS ORDERED: FUROSEMIDE 20 MG TABLET ONE (14:06)
[2020-05-02 14:16] VITALS: BP 140/99
== END 2020-05-02 14:18 | disposition home or self-care (01) ==
LOC: ED 13:20
DX: I11.0 Hypertensive heart disease with heart failure (principal); I50.9 Heart failure, unspecified; R07.89 Other chest pain; R06.02 Shortness of breath; E11.9 Type 2 diabetes mellitus without complications; E78.5 Hyperlipidemia, unspecified; M19.90 Unspecified osteoarthritis, unspecified site; J44.9 Chronic obstructive pulmonary disease, unspecified; Z95.0 Presence of cardiac pacemaker; Z90.89 Acquired absence of other organs; Z87.891 Personal history of nicotine dependence
CPT/HCPCS: 36415; 71045; 80053; 83880; 84484; 85025; 93005; 99285

== ENCOUNTER 2020-05-07 15:59 | Inpatient (IN) | payer MEDICARE ==
[~2020-05-07] VITALS: Ht 180.3 cm; Wt 111.8 kg
[~2020-05-07 15:59] MED LIST changes: +FURO-93 PO
--- NOTE | 2020-05-07 16:15 | NUR ---
BREAK RN: THIS IS A 64 YEAR OLD MALE WHO CAME BY AMBULANCE DUE TO SOB, COUGH, WOUNDS. PT NONCOMPLIANT WITH MEDICATION, PT STATES, "SOMEONE STOLE MY MEDICATIONS". PT HAS A HX OF CHF, COPD, PACEMAKER, CHRONIC WOUNDS ON LOWER LEGS. PT IS HOMELESS. PT PLACED ON YARN WINDER, PACED, CONTINOUS SP02 AT 100% ON 3NC, AND CONTINOUS SP02.
[2020-05-07] MEDS ORDERED: FUROSEMIDE 40 MG/4 ML IV ONE (16:30)
[2020-05-07] MEDS ORDERED: FUROSEMIDE 40 MG/4 ML ONE (16:33)
--- NOTE | 2020-05-07 16:46 | NUR ---
PT MEDICATED PER ORDER. PT O2 SAT ON 3 LPM IS 100% PT TURNED DOWN TO 2 LPM VIA NC AT THIS TIME. URINAL AT BEDSIDE, CALL LIGHT IN REACH. BELONGINGS AT BEDSIDE.
[2020-05-07 17:21] LABS: BASOPHILS % (AUTO) 1 % (0-1); EOSINOPHILS % (AUTO) 1 % (1-7); LYMPHOCYTES % (AUTO) 13 % (22-44); MEAN CORPUSCULAR HEMOGLOBIN 28.8 pg (27.5-34.5); MEAN CORPUSCULAR HGB CONC 31.8 g/dL (33.2-36.2); MEAN PLATELET VOLUME 10.2 fL (7.4-10.4); MONOCYTES % (AUTO) 11 % (2-9); NEUTROPHILS % (AUTO) 74 % (42-75); PLATELET COUNT 196 x10^3/uL (130-400); RED BLOOD COUNT 4.63 x10^6/uL (4.38-5.82); RED CELL DISTRIBUTION WIDTH 21.4 % (9.4-14.8)
[2020-05-07 17:26] LABS: ALBUMIN 3.3 g/dL (3.4-5.0); ANION GAP 4 mmol/L (5-15); CALCIUM 8.9 mg/dL (8.5-10.1); CHLORIDE 104 mmol/L (98-107)
[2020-05-07 17:28] LABS: MD NO
[2020-05-07 17:32] LABS: ALANINE AMINOTRANSFERASE 30 U/L (12-78); ALKALINE PHOSPHATASE 170 U/L (45-117); BILIRUBIN,TOTAL 1.1 mg/dL (0.2-1.0); CREATININE 0.99 mg/dL (0.7-1.3); TROPONIN I 0.046 ng/mL (0.000-0.045)
[2020-05-07] MEDS ORDERED: NITROGLYCERIN 0.4 MG BOTTLE (25 TABS) SL PRN (18:30)
[2020-05-07] MEDS ORDERED: ACETAMINOPHEN 325 MG TABLET PO PRN (18:30)
[2020-05-07] MEDS ORDERED: POLYETHYLENE GLYCOL 17 GM PACKET PO PRN (18:30)
[2020-05-07] MEDS ORDERED: ONDANSETRON ODT 4 MG PO PRN (18:30)
[2020-05-07] MEDS ORDERED: BISACODYL 10 MG SUPP PR PRN (18:30)
[2020-05-07 18:50] LABS: TROPONIN I 0.044 ng/mL (0.000-0.045)
--- NOTE | 2020-05-07 19:10 | NUR ---
REPORT: Paras BATISTA gave report to greeting card writer. Patient noted to be on air sampling and monitoring, resting comfortably in bed. Urinals emptied, offers no complaints at this time. 1700ml of urine emptied from urinals
[2020-05-07] MEDS ORDERED: APIXABAN 5 MG TABLET ONE (19:58)
[2020-05-07] MEDS ORDERED: GABAPENTIN 100 MG CAPSULE ONE (19:59)
[2020-05-07] MEDS ORDERED: CARVEDILOL 6.25 MG TABLET ONE (19:59)
[2020-05-07 20:00] VITALS: BP 127/94
[2020-05-07] MEDS ORDERED: INSULIN LISPRO 100 UNITS/ML, PEN ONE (20:00)
[2020-05-07] MEDS: CARVEDILOL 6.25 MG TABLET PO SCH (20:07)
[2020-05-07] MEDS: GABAPENTIN 100 MG CAPSULE PO SCH (20:07)
[2020-05-07] MEDS: SODIUM CHLORIDE FLUSH 10ML SYR IVF SCH (20:08)
[2020-05-07] MEDS: APIXABAN 5 MG TABLET PO SCH (20:08)
[2020-05-07] MEDS: INSULIN LISPRO 100 UNITS/ML, PEN SQ-INSULIN SCH (20:08)
[2020-05-07 23:34] VITALS: BP 127/94
[2020-05-08 02:00] VITALS: BP 134/91
[2020-05-08 04:27] LABS: BASOPHILS % (AUTO) 1 % (0-1); EOSINOPHILS % (AUTO) 2 % (1-7); LYMPHOCYTES % (AUTO) 16 % (22-44); MD NO; MEAN CORPUSCULAR HEMOGLOBIN 28.7 pg (27.5-34.5); MEAN PLATELET VOLUME 10.3 fL (7.4-10.4); MONOCYTES % (AUTO) 13 % (2-9); NEUTROPHILS % (AUTO) 69 % (42-75); PLATELET COUNT 167 x10^3/uL (130-400); RED BLOOD COUNT 4.48 x10^6/uL (4.38-5.82); RED CELL DISTRIBUTION WIDTH 21.1 % (9.4-14.8)
[2020-05-08 04:36] LABS: ANION GAP 5 mmol/L (5-15); CALCIUM 9.1 mg/dL (8.5-10.1); CHLORIDE 108 mmol/L (98-107)
[2020-05-08 05:59] VITALS: BP 138/94
[2020-05-08 06:45] VITALS: BP 139/96
[2020-05-08 08:43] VITALS: BP 128/83
[2020-05-08] MEDS: APIXABAN 5 MG TABLET PO SCH ×2 (08:45→20:30)
[2020-05-08] MEDS: FUROSEMIDE 40 MG/4 ML IV SCH ×2 (08:45→16:34)
[2020-05-08] MEDS: ATORVASTATIN 20 MG TABLET PO SCH (08:46)
[2020-05-08] MEDS: CARVEDILOL 6.25 MG TABLET PO SCH ×2 (08:46→20:30)
[2020-05-08] MEDS: LISINOPRIL 10 MG TABLET PO SCH (08:46)
[2020-05-08] MEDS: GABAPENTIN 100 MG CAPSULE PO SCH ×3 (08:46→20:30)
[2020-05-08] MEDS: SODIUM CHLORIDE FLUSH 10ML SYR IVF SCH ×2 (08:47→20:30)
[2020-05-08] MEDS: SENNA/DOCUSATE TABLET PO SCH (08:47)
[2020-05-08] MEDS: INSULIN LISPRO 100 UNITS/ML, PEN SQ-INSULIN SCH ×4 (10:09→21:36)
[2020-05-08 12:31] VITALS: BP 118/80
[2020-05-08 20:27] VITALS: BP 111/76
[2020-05-08] MEDS: INSULIN GLARGINE 100 UNITS/ML, PEN SQ-INSULIN SCH (21:36)
[2020-05-09 02:18] VITALS: BP 122/83
[2020-05-09 05:39] LABS: CHLORIDE 105 mmol/L (98-107)
[2020-05-09 05:53] LABS: ANION GAP 8 mmol/L (5-15); CALCIUM 9.1 mg/dL (8.5-10.1); CREATININE 0.84 mg/dL (0.7-1.3)
[2020-05-09] MEDS: INSULIN LISPRO 100 UNITS/ML, PEN SQ-INSULIN SCH ×5 (08:37→20:32)
[2020-05-09] MEDS: FUROSEMIDE 40 MG/4 ML IV SCH ×2 (08:44→16:50)
[2020-05-09] MEDS: ATORVASTATIN 20 MG TABLET PO SCH (08:44)
[2020-05-09] MEDS: SENNA/DOCUSATE TABLET PO SCH (08:44)
[2020-05-09] MEDS: GABAPENTIN 100 MG CAPSULE PO SCH ×3 (08:44→20:33)
[2020-05-09] MEDS: CARVEDILOL 6.25 MG TABLET PO SCH ×2 (08:45→20:33)
[2020-05-09] MEDS: APIXABAN 5 MG TABLET PO SCH ×2 (08:45→20:33)
[2020-05-09] MEDS: LISINOPRIL 10 MG TABLET PO SCH (08:45)
[2020-05-09] MEDS: INSULIN GLARGINE 100 UNITS/ML, PEN SQ-INSULIN SCH ×2 (08:46→21:00)
[2020-05-09 08:47] VITALS: BP 134/93
[2020-05-09] MEDS: SODIUM CHLORIDE FLUSH 10ML SYR IVF SCH ×2 (08:47→20:33)
[2020-05-09] MEDS: MUPIROCIN OINT 2%, 22GM TP SCH (10:23)
[2020-05-09 13:00] VITALS: BP 104/72
[2020-05-09 21:25] VITALS: BP 124/79
[2020-05-10 04:25] VITALS: BP 126/85
[2020-05-10 06:04] LABS: ANION GAP 4 mmol/L (5-15); CALCIUM 8.6 mg/dL (8.5-10.1); CHLORIDE 101 mmol/L (98-107); CREATININE 0.84 mg/dL (0.7-1.3)
[2020-05-10 06:33] VITALS: BP 122/83
[2020-05-10] MEDS: INSULIN LISPRO 100 UNITS/ML, PEN SQ-INSULIN SCH ×4 (07:00→20:20)
[2020-05-10] MEDS: GABAPENTIN 100 MG CAPSULE PO SCH ×3 (09:06→20:06)
[2020-05-10] MEDS: APIXABAN 5 MG TABLET PO SCH ×2 (09:06→20:06)
[2020-05-10] MEDS: LISINOPRIL 10 MG TABLET PO SCH (09:06)
[2020-05-10] MEDS: SENNA/DOCUSATE TABLET PO SCH (09:06)
[2020-05-10] MEDS: ATORVASTATIN 20 MG TABLET PO SCH (09:06)
[2020-05-10] MEDS: FUROSEMIDE 40 MG/4 ML IV SCH ×2 (09:06→17:43)
[2020-05-10] MEDS: SODIUM CHLORIDE FLUSH 10ML SYR IVF SCH ×2 (09:07→20:07)
[2020-05-10] MEDS: MUPIROCIN OINT 2%, 22GM TP SCH (09:07)
[2020-05-10] MEDS: CARVEDILOL 6.25 MG TABLET PO SCH ×2 (09:07→20:06)
[2020-05-10] MEDS: INSULIN GLARGINE 100 UNITS/ML, PEN SQ-INSULIN SCH ×2 (11:23→20:20)
[2020-05-10] MEDS ORDERED: MAGNESIUM SULFATE PMX 2GM/50ML 50 ML IV ONE (13:00)
[2020-05-10 13:18] VITALS: BP 121/83
[2020-05-10 18:56] VITALS: BP 113/78
[2020-05-10 20:02] VITALS: BP 108/65
[2020-05-11 02:37] VITALS: BP 135/93
[2020-05-11 05:56] LABS: ANION GAP 6 mmol/L (5-15); CHLORIDE 103 mmol/L (98-107)
[2020-05-11 05:58] LABS: CREATININE 0.88 mg/dL (0.7-1.3)
[2020-05-11 06:42] VITALS: BP 129/87
[2020-05-11] MEDS: CARVEDILOL 6.25 MG TABLET PO SCH (08:24)
[2020-05-11] MEDS: ATORVASTATIN 20 MG TABLET PO SCH (08:24)
[2020-05-11] MEDS: LISINOPRIL 10 MG TABLET PO SCH (08:24)
[2020-05-11] MEDS: APIXABAN 5 MG TABLET PO SCH (08:24)
[2020-05-11] MEDS: SENNA/DOCUSATE TABLET PO SCH (08:24)
[2020-05-11] MEDS: GABAPENTIN 100 MG CAPSULE PO SCH ×2 (08:24→17:22)
[2020-05-11] MEDS: SODIUM CHLORIDE FLUSH 10ML SYR IVF SCH (08:28)
[2020-05-11] MEDS: INSULIN LISPRO 100 UNITS/ML, PEN SQ-INSULIN SCH ×3 (08:28→17:28)
[2020-05-11] MEDS: INSULIN GLARGINE 100 UNITS/ML, PEN SQ-INSULIN SCH (08:28)
[2020-05-11] MEDS: MUPIROCIN OINT 2%, 22GM TP SCH (08:28)
[2020-05-11] MEDS: FUROSEMIDE 40 MG/4 ML IV SCH (08:28)
[2020-05-11 12:10] VITALS: BP 132/92
[2020-05-11] MEDS ORDERED: GABA-826 PO (13:45)
[2020-05-11] MEDS ORDERED: LISI-167 PO (13:45)
[2020-05-11] MEDS ORDERED: CARV6.2512 PO (13:45)
[2020-05-11] MEDS ORDERED: INSU100I13 SQ-INSULIN (13:45)
[2020-05-11] MEDS ORDERED: ATOR20TA37 PO (13:45)
[2020-05-11] MEDS ORDERED: APIX5TAB PO (13:45)
[2020-05-11] MEDS ORDERED: FURO20TA3 PO (13:45)
[2020-05-11] MEDS ORDERED: SPIR25TA5 PO (14:54)
[2020-05-11] MEDS ORDERED: FUROSEMIDE 20 MG TABLET PO SCH (17:00)
== END 2020-05-11 17:57 | disposition home or self-care (01) | DRG 291 ==
LOC: ED 17:50 → EDIP 17:59 → CCU 19:49 → 5SO 05-08 05:36
PROVIDERS: ADMIT Internal Medicine; ATTEND Hospitalist
DX: I11.0 Hypertensive heart disease with heart failure (principal); J96.01 Acute respiratory failure with hypoxia; D68.69 Other thrombophilia; I47.2 Ventricular tachycardia; I50.23 Acute on chronic systolic (congestive) heart failure; I42.9 Cardiomyopathy, unspecified; E11.65 Type 2 diabetes mellitus with hyperglycemia; I07.1 Rheumatic tricuspid insufficiency; I27.20 Pulmonary hypertension, unspecified; J44.9 Chronic obstructive pulmonary disease, unspecified; E78.5 Hyperlipidemia, unspecified; I25.10 Atherosclerotic heart disease of native coronary artery without angina pectoris; Z59.0 Homelessness; Z79.4 Long term (current) use of insulin; Z80.3 Family history of malignant neoplasm of breast; Z82.5 Family history of asthma and other chronic lower respiratory diseases; Z87.891 Personal history of nicotine dependence; Z91.14 Patient's other noncompliance with medication regimen; Z95.810 Presence of automatic (implantable) cardiac defibrillator; N40.0 Benign prostatic hyperplasia without lower urinary tract symptoms; M06.9 Rheumatoid arthritis, unspecified; I87.8 Other specified disorders of veins
CPT/HCPCS: 36415; 71045; 80048; 80053; 82962; 83036; 83735; 83880; 84484; 85025; 87081; 93005; 96374; 99285; G0378; J1940; J1815; J3475

== ENCOUNTER 2020-07-20 22:46 | Emergency (ER) | payer MEDICARE, OTHER ==
[~2020-07-20] VITALS: Ht 180.3 cm; Wt 130.0 kg
[~2020-07-20 22:46] MED LIST changes: +ATOR20TA37 PO; +CARV12.52 PO; +DOXY100T23 PO; +FURO20TA3 PO; +GLIP5TAB10 PO; +INSU100I18 SQ; +LISI-420 PO; +METF10007 PO; +POTA20TA14 PO; +SPIR25TA5 PO
[2020-07-20] MEDS ORDERED: KETOROLAC 30 MG/1 ML ONE (23:27)
[2020-07-20] MEDS ORDERED: DIPHENHYDRAMINE 50 MG/ML, 1ML ONE (23:27)
[2020-07-20] MEDS ORDERED: METOCLOPRAMIDE 5 MG/ML, 2ML ONE (23:27)
[2020-07-20] MEDS ORDERED: METOCLOPRAMIDE 5 MG/ML, 2ML IVPush ONE (23:30)
[2020-07-20] MEDS ORDERED: KETOROLAC 30 MG/1 ML IVPush ONE (23:30)
[2020-07-20] MEDS ORDERED: DIPHENHYDRAMINE 50 MG/ML, 1ML IVPush ONE (23:30)
--- NOTE | 2020-07-21 00:04 | NUR ---
PT CONT ROLLING AROUND ON [facility]. VSS.
[2020-07-21] MEDS ORDERED: DIPHENHYDRAMINE 50 MG/ML, 1ML ONE (01:23)
[2020-07-21] MEDS ORDERED: LORazepam 2 MG/ML, 1ML ONE (01:24)
[2020-07-21] MEDS ORDERED: LORazepam 2 MG/ML, 1ML IVPush ONE (01:30)
[2020-07-21] MEDS ORDERED: DIPHENHYDRAMINE 50 MG/ML, 1ML IVPush ONE (01:30)
--- NOTE | 2020-07-21 01:31 | NUR ---
PT CONT TO ROLL ON GURNEY, RESTLESS. PT MEDICATED ONCE MORE PER EMAR. PT TO MTF. VSS.
[2020-07-21] MEDS ORDERED: LORazepam 2 MG/ML, 1ML IVPush PRN (02:00)
--- NOTE | 2020-07-21 02:18 | NUR ---
PT RESTING, BP DROPPED AFTER ATIVAN GIVEN, PT PLACED IN [place].
--- NOTE | 2020-07-21 03:27 | NUR ---
PT SLEEPING ON GURNEY, VS IMPROVING. REPORT GIVEN TO ERICA BATISTA.
--- NOTE | 2020-07-21 03:27 | NUR ---
REPORT RECEIVED FROM MARYLOU BATISTA. PT RESTING IN GURFIFE, SLEEPING. NO NEEDS AT THIS TIME. CALL LIGHT TIMOTHY REACH
--- NOTE | 2020-07-21 04:44 | NUR ---
pt sleeping, connected to cardiac monitors and continuous pulse ox. call light within reach. resp even and unlabored.
--- NOTE | 2020-07-21 05:58 | NUR ---
pt sleeping, connected to cardiac monitors and continuous pulse ox. call light within reach.
[2020-07-21 06:40] VITALS: BP 127/78
== END 2020-07-21 07:00 | disposition home or self-care (01) ==
LOC: ED 07-21 02:00
DX: F15.159 Other stimulant abuse with stimulant-induced psychotic disorder, unspecified (principal); R51.9 Headache, unspecified; I11.0 Hypertensive heart disease with heart failure; I50.9 Heart failure, unspecified; E11.9 Type 2 diabetes mellitus without complications; J44.9 Chronic obstructive pulmonary disease, unspecified; E78.5 Hyperlipidemia, unspecified; Z90.49 Acquired absence of other specified parts of digestive tract; Z95.0 Presence of cardiac pacemaker; Z87.891 Personal history of nicotine dependence
CPT/HCPCS: 96374; 96375; 96376; 99285; J1200; J1885; J2060; J2765

== ENCOUNTER 2020-07-21 15:35 | Emergency (ER) | payer MEDICARE, OTHER ==
[~2020-07-21] VITALS: Ht 180.3 cm; Wt 105.0 kg
[2020-07-21 15:39] VITALS: BP 110/50
--- NOTE | 2020-07-21 16:32 | NUR ---
GOLD LEAF LABORER: PT ASSESSED IN TRIAGE BY PROVIDER. POC IS DC. PT ASSISTED TO DRESS IN WARM CLOTHING. DC EDUCATION PROVIDED, PT DEMONSTRATES UNDERSTANDING. PT AMBULATED STEADILY TO DC WITH RN USING OWN WALKER. TAXI VOUCHER PROVIDED FOR SAFE TRANSPORT TO ADDRESS PROVIDED BY PT. PT IS IN POSSESSION OF ALL BELONGINGS, INCLUDING CLEAN CLOTHING, A WARM JACKET, AND SEVERAL BLANKETS.
== END 2020-07-21 16:35 | disposition home or self-care (01) ==
LOC: ED 16:20
DX: F10.10 Alcohol abuse, uncomplicated (principal); F15.10 Other stimulant abuse, uncomplicated; F17.200 Nicotine dependence, unspecified, uncomplicated; J44.9 Chronic obstructive pulmonary disease, unspecified; I10 Essential (primary) hypertension; E11.9 Type 2 diabetes mellitus without complications; E78.5 Hyperlipidemia, unspecified; Y90.9 Presence of alcohol in blood, level not specified; Z72.9 Problem related to lifestyle, unspecified; Z59.0 Homelessness
CPT/HCPCS: 99281

== ENCOUNTER 2020-11-19 20:18 | Emergency (ER) | payer MEDICARE ==
[~2020-11-19] VITALS: Ht 180.3 cm; Wt 99.7 kg
[~2020-11-19 20:18] MED LIST changes: +AMIO200T42 PO; +CARV3.1212 PO; +ERTA1VIA IV; -LISI-420 PO; +LISI20TA21 PO; -OXYC-302 PO; +OXYC1TAB14 PO; -OXYC5TAB3 PO; +OXYC5TAB98 PO; +SULF-23 PO; -SULF1TAB24 PO; +Vancomycin Per Pharmacy MC
[2020-11-19 20:33] VITALS: BP 149/80
--- NOTE | 2020-11-19 20:44 | NUR ---
PT AMBULATED TO ROOM FROM TRIAGE WITH WALKER. PT CO BILATERAL EYE PAIN, REDNESS AND DISCAHRGE. PT STATED HE WAS FINE LAST NIGHT AND WOKE UP WITH THIS COMPLAINT. PT STATED HE IS CURRENTLY STAYING AT [facility].
--- NOTE | 2020-11-19 20:56 | NUR ---
REPORT GIVEN TO LYNNE SUÁREZ
[2020-11-19] MEDS ORDERED: FLUORESCEIN OPHTHALMIC 1 MG STRIP ONE (21:08)
[2020-11-19] MEDS ORDERED: PROPARACAINE OPHTH 0.5%, 15ML ONE (21:08)
[2020-11-19] MEDS ORDERED: FLUORESCEIN OPHTHALMIC 1 MG STRIP EACHEYE ONE (21:30)
[2020-11-19] MEDS ORDERED: PROPARACAINE OPHTH 0.5%, 15ML EACHEYE ONE (21:30)
[2020-11-19] MEDS ORDERED: MOXIFLOXACIN OPHTH O.5%, 3ML EACHEYE SCH (21:30)
--- NOTE | 2020-11-19 22:31 | NUR ---
PT PROVIDED EYE DROPS AND WALKED TO DISCHRAGE DESK. PT GIVEN REMAINDER OF BOTTLE AND EDUCATED ON ITS USE.
== END 2020-11-19 22:33 | disposition home or self-care (01) ==
LOC: ED 21:05
DX: H10.023 Other mucopurulent conjunctivitis, bilateral (principal); J44.9 Chronic obstructive pulmonary disease, unspecified; I48.91 Unspecified atrial fibrillation; I11.0 Hypertensive heart disease with heart failure; I50.9 Heart failure, unspecified; E78.5 Hyperlipidemia, unspecified; E11.65 Type 2 diabetes mellitus with hyperglycemia; Z87.891 Personal history of nicotine dependence
CPT/HCPCS: 82962; 99283

== ENCOUNTER 2020-11-28 15:17 | Emergency (ER) | payer MEDICARE ==
[~2020-11-28] VITALS: Ht 180.3 cm; Wt 109.0 kg
[2020-11-28] MEDS ORDERED: SODIUM CHLORIDE FLUSH 10ML SYR IVF ONE (16:00)
--- NOTE | 2020-11-28 16:17 | NUR ---
XR AT BEDSIDE
[2020-11-28 16:19] LABS: BASOPHILS % (AUTO) 1 % (0-1); EOSINOPHILS % (AUTO) 1 % (1-7); LYMPHOCYTES % (AUTO) 12 % (22-44); MEAN CORPUSCULAR HEMOGLOBIN 30.5 pg (27.5-34.5); MEAN PLATELET VOLUME 10.5 fL (7.4-10.4); MONOCYTES % (AUTO) 9 % (2-9); NEUTROPHILS % (AUTO) 77 % (42-75); PLATELET COUNT 209 x10^3/uL (130-400); RED BLOOD COUNT 3.91 x10^6/uL (4.38-5.82); RED CELL DISTRIBUTION WIDTH 16.7 % (9.4-14.8)
[2020-11-28 16:21] LABS: MD NO
[2020-11-28 16:23] LABS: ALANINE AMINOTRANSFERASE 31 U/L (12-78); ALBUMIN 3.2 g/dL (3.4-5.0); ANION GAP 6 mmol/L (5-15); CALCIUM 8.6 mg/dL (8.5-10.1); CHLORIDE 108 mmol/L (98-107); CREATININE 1.13 mg/dL (0.7-1.3)
[2020-11-28 16:26] LABS: ALKALINE PHOSPHATASE 199 U/L (45-117); BILIRUBIN,TOTAL 0.5 mg/dL (0.2-1.0)
[2020-11-28] MEDS ORDERED: POTASSIUM CHLORIDE 20 MEQ TAB.ER.PRT ONE (17:47)
[2020-11-28 18:25] LABS: MICROSCOPIC AUTO
--- NOTE | 2020-11-28 18:51 | NUR ---
REPORT FROM ZAYDA BATISTA
[2020-11-28] MEDS ORDERED: FUROSEMIDE 20 MG/2 ML ONE (18:56)
[2020-11-28 18:58] VITALS: BP 148/98
[2020-11-28] MEDS ORDERED: FUROSEMIDE 20 MG/2 ML IV ONE (19:00)
== END 2020-11-28 19:11 | disposition home or self-care (01) ==
LOC: ED 15:43
DX: R06.00 Dyspnea, unspecified (principal); I11.0 Hypertensive heart disease with heart failure; I50.9 Heart failure, unspecified; E11.9 Type 2 diabetes mellitus without complications; I48.91 Unspecified atrial fibrillation; J44.9 Chronic obstructive pulmonary disease, unspecified; M19.90 Unspecified osteoarthritis, unspecified site
CPT/HCPCS: 36415; 71045; 80053; 81001; 83690; 83880; 85025; 93005; 96374; 99285; J1940

== ENCOUNTER 2020-12-15 00:57 | Emergency (ER) | payer MEDICARE ==
[~2020-12-15] VITALS: Ht 180.3 cm; Wt 110.0 kg
[2020-12-15] MEDS ORDERED: LORazepam 1MG TABLET PO ONE (01:30)
[2020-12-15] MEDS ORDERED: LORazepam 2 MG/ML, 1ML ONE (01:34)
[2020-12-15 01:39] LABS: BASOPHILS % (AUTO) 0 % (0-1); EOSINOPHILS % (AUTO) 0 % (1-7); LYMPHOCYTES % (AUTO) 5 % (22-44); MEAN CORPUSCULAR HEMOGLOBIN 30.1 pg (27.5-34.5); MEAN CORPUSCULAR HGB CONC 32.3 g/dL (33.2-36.2); MONOCYTES % (AUTO) 9 % (2-9); NEUTROPHILS % (AUTO) 86 % (42-75); PLATELET COUNT 270 x10^3/uL (130-400); RED BLOOD COUNT 4.61 x10^6/uL (4.38-5.82); RED CELL DISTRIBUTION WIDTH 16.7 % (9.4-14.8)
--- NOTE | 2020-12-15 01:40 | NUR ---
PT RESTLESS AND MOVING ARMS AND LEGS CONSTANTLY. PT MEDICATED WITH ATIVAN 1MG VIA IV. PROVIDER NOTIFIED
--- NOTE | 2020-12-15 01:46 | NUR ---
PT RSTLESS AFTER SMOKING METH YESTERDAY. PT ALSO HAS C/O "UPPER ABD/CP PAIN THAT RADIATES INTO LEG AT TIMES"
[2020-12-15 01:49] LABS: ALBUMIN 4.3 g/dL (3.4-5.0); ANION GAP 11 mmol/L (5-15); CALCIUM 9.2 mg/dL (8.5-10.1); CHLORIDE 103 mmol/L (98-107); CREATININE 2.09 mg/dL (0.7-1.3)
[2020-12-15] MEDS ORDERED: SODIUM CHLORIDE 0.9% 1,000ML IVBOLUS ONE ×2 (02:00→03:30)
[2020-12-15 02:08] LABS: MD SCAN
--- NOTE | 2020-12-15 02:37 | NUR ---
PT RESTING IN BED, PT ON MONITOR WITH O2 NC AT 2 L DUE TO PT O2 SATS DIPPING INTO 88 89% WHEN SLEEPING.
--- NOTE | 2020-12-15 03:15 | NUR ---
PT RESTLESS IN BED TURNING BACK AND FORTH IN BED DISLODGING MONITORING EQUIPMENT AT TIMES. PT IS SWEATING MORE THAT HE WAS WHEN PT ARRIVED BY EMS. PROVIDER NOTIFIED
[2020-12-15 03:25] VITALS: BP 161/118
[2020-12-15] MEDS ORDERED: PIPERACILLIN/TAZO 3.375 GM in DEXTROSE 5% 50 ML IVPB ONE (03:30)
[2020-12-15] MEDS ORDERED: LORazepam 2 MG/ML, 1ML IVPush ONE (03:30)
[2020-12-15] MEDS ORDERED: VANCOMYCIN PER PHARMACY MC ONE (03:30)
--- NOTE | 2020-12-15 03:37 | NUR ---
PROVIDER REQUESTED PT BE MOVED TO TRAUMA 4 ROOM, PT CARE TRANSFERED TO WIDE PIECE GOODS INSPECTORLYNNE KNIGHT
--- NOTE | 2020-12-15 03:39 | NUR ---
ASSUMING CARE OF PT AT THIS TIME. THIS IS A 65YO M BIB EMS FROM HOMELESS ALF W/ C/O ABD PAIN/CP. PT HAS HX OF SEPSIS. AT THIS TIME, PT ALTERED, RESPONSIVE TO PAIN ONLY, NOT ANSWERING QUESTIONS. PT EXTREMELY AGITATED, FLAILING EXTREMITIES. PT PERFUSELY DIAPHORETIC. AFIB W/ HR 120'S.
--- NOTE | 2020-12-15 03:57 | NUR ---
PT W/ EMESIS DURING INTUBATION ATTEMPT.
[2020-12-15] MEDS ORDERED: VANCOMYCIN 2,200 MG in SODIUM CHLORIDE 0.9% 500 ML IV ONE (04:00)
--- NOTE | 2020-12-15 04:19 | NUR ---
Gela sainz in ED - 12/15/20 at 0554 by UMA LATE ENTRY D/T PATIENT CARE: 0419 PEA, CPR INTIATED, SEE PAPER CHARTING 0333 TIME OF
--- NOTE | 2020-12-15 04:21 | NUR ---
LATE ENTRY D/T PATIENT CARE: 0348 20MG ETOMIDATE 0349 100MG SUCC 0350 RAHEL SARKAR AND ATTEMPT INTUBATION 0358 PATIENT RHYTHM CHANGED INTO PEA SEE CODE BLUE CHART SHEET 1302 ROSC
[2020-12-15] MEDS ORDERED: EPINEPHRINE SYRINGE 0.1 MG/ML, 10ML ONE ×3 (04:22→05:06)
[2020-12-15] MEDS ORDERED: SODIUM BICARB 8.4%, 50ML SYRINGE ONE ×2 (04:22→05:06)
[2020-12-15] MEDS ORDERED: CODE BLUE RESPONSE XX ONE ×2 (04:30→05:30)
--- NOTE | 2020-12-15 04:58 | NUR ---
LATE ENTRY D/T PATIENT CARE: 0419 PEA, CPR INTIATED, SEE PAPER CHARTING [id number] TIME OF
[2020-12-15] MEDS ORDERED: ETOMIDATE 20 MG/10 ML ONE (05:00)
[2020-12-15] MEDS ORDERED: PROPOFOL 10 MG/ML, 100ML IV ONE (05:00)
--- NOTE | 2020-12-15 05:10 | NUR ---
TELEPHONE CALL TO DONOR NETWORK REF #[phone]
[2020-12-15] MEDS ORDERED: EPINEPHRINE 5 MG in SODIUM CHLORIDE 0.9% 245 ML IV PRN (05:30)
--- NOTE | 2020-12-15 05:49 | NUR ---
PT AND BELONGINGS TAKEN TO CORONERS OFFICE BY RASHIDA ORDONEZ AT THIS TIME.
--- NOTE | 2020-12-15 05:53 | NUR ---
LIFE SCIENCE TEACHER CASE # [id number]
== END 2020-12-15 06:50 | disposition expired ==
LOC: ED 01:38
DX: A41.9 Sepsis, unspecified organism (principal); I46.9 Cardiac arrest, cause unspecified; N17.9 Acute kidney failure, unspecified; R41.82 Altered mental status, unspecified; J96.01 Acute respiratory failure with hypoxia; R00.0 Tachycardia, unspecified; G92 Toxic encephalopathy; F15.129 Other stimulant abuse with intoxication, unspecified; D72.829 Elevated white blood cell count, unspecified
CPT/HCPCS: 31500; 36415; 80048; 82040; 82550; 85025; 87040; 92950; 93005; 96360; 99291; 99292; J2704; J7030